=== PATIENT | female | born 1995 | race Caucasian/White ===

== ENCOUNTER → 2019-04-01 15:06 | Outpatient (CLI) | payer MEDICAID, SELFPAY ==
[2019-04-01 15:58] LABS: Hemoglobin A1c 4.6 % (4.2-6.3)
[2019-04-01 16:56] LABS: Amphetamine Urine VISTA NEGATIVE (<1000 ng/mL); Barbiturate Urine VISTA NEGATIVE (< 200 ng/mL); Benzodiazepine Urine VISTA NEGATIVE (< 200 ng/mL); Cocaine Urine VISTA NEGATIVE (< 300 ng/mL); Ecstacy Urine VISTA NEGATIVE (< 500 ng/mL); Methadone Urine VISTA NEGATIVE (< 300 ng/mL); PCP Urine VISTA NEGATIVE (< 25 ng/mL); THC Urine VISTA NEGATIVE (< 50 ng/mL); Vista UDS pH Range 6
== END ==
PROVIDERS: Visit Provider Obstetrics & Gynecology
DX: Z34.83 Encounter for supervision of other normal pregnancy, third trimester (principal); Z36.85 Encounter for antenatal screening for Streptococcus B
CPT/HCPCS: 36415; 80307; 83036; 87081

== ENCOUNTER 2019-05-03 07:00 | Inpatient (IN) | payer MEDICAID, SELFPAY ==
[2019-05-03 07:29] VITALS: BMI 31.0
[2019-05-03] MEDS: Lactated Ringers 1,000 ML 50 ML IV ×3 (07:50→18:50)
[2019-05-03] MEDS: Oxytocin 30 units/NS 500 ml 30 UNITS/500 ML IV.SOLN IV (08:22)
[2019-05-03 08:27] LABS: Absolute Lymphocyte Count 2.09 X10^3/ul (0.83-4.51); Absolute Neutrophil Count 8.2 X10^3/uL (2.0-7.7); Basophil# 0.03 X10^3/uL; Basophil% 0.3 % (0-1); Eosinophils% 0.9 % (0-5); Hematocrit 35.9 % (37-47); Lymphocyte # 2.09 X10^3/ul (4.0); Lymphocyte % 18.5 % (19-41); Mean Corp Hgb Conc 33.4 g/gl (32-36); Mean Corpuscular Hgb 30.2 pg (27.0-32.0); Mean Corpuscular Volume 90.4 fL (81-99); Mean Platelet Vol. 10.6 fl (6.2-12.0); Monocyte# 0.85 X10^3/uL; Monocyte% 7.5 % (0-10); Neutrophil % 72.4 % (47-70); Platelet Count 253 K/mm3 (150-450); RBC Distribution Width CV 13.2 % (11.6-14.6); RBC Distribution Width SD 42.8 fl (35.1-43.9); Red Blood Count 3.97 M/mm3 (4.2-5.4); White Blood Count 11.3 K/mm3 (4.4-11.0)
[2019-05-03 08:37] LABS: POSITIVE COUNT NO; POSITIVE DIFFERENTIAL NO; POSITIVE MORPHOLOGY NO
[2019-05-03] MEDS: fentaNYL-bupivacaine (epidural) 100 ML BAG EPIDURAL ×3 (09:29→20:06)
[2019-05-03 10:16] LABS: Amphetamine Urine VISTA NEGATIVE (<1000 ng/mL); Barbiturate Urine VISTA NEGATIVE (< 200 ng/mL); Benzodiazepine Urine VISTA NEGATIVE (< 200 ng/mL); Cocaine Urine VISTA NEGATIVE (< 300 ng/mL); Ecstacy Urine VISTA NEGATIVE (< 500 ng/mL); Methadone Urine VISTA NEGATIVE (< 300 ng/mL); PCP Urine VISTA NEGATIVE (< 25 ng/mL); THC Urine VISTA NEGATIVE (< 50 ng/mL); Vista UDS pH Range 7
--- NOTE | 2019-05-03 11:17 | HP.PCM_ITS ---
History and Physical Date of Admission: 05/03/19 OB HISTORY AND PHYSICAL EXAMINATION [facility] History of this : 23 yo female Ab0 with EDC 04/23/2019 by 12wk Ultrasound, presents to Labor and Delivery. for induction of labor postdates at 41 3/7 wk EGA. H/o rapid progression after AROM and plans epidural first prior to AROM. care remarkable for - , O positive. RI HepB, HepC NEG, HSV type I positive. TSH wnl., TOX screen positive, Marijuana, 1.) Approximately 1 hr of labor following SROM with first child, 2.) FOB has a 2-1/2 yr old son with possible Autism (lives in [place] with mother), Pt's 4 year old is with her father in [place], 3.) Marijuana use early in the , Tox screen negative at admission. 4.) ALLERGIC to PCN's!! 5.) VERY late transfer of care. 6.) Smoker 7.) H/O SEVERE depressive disorder with psychotic features. Also anxiety disorder Pertinent Past Medical History: Rubella - 15.5 09/07/18 Allergies: Penicillins Medications: None Review of Systems: Non-contributory PHYSICAL EXAMINATION General Appearance: 23 yo female in no acute distress Vital Signs: AF, VSS Heart: RRR without rubs or gallops Lungs: CTA x 2 Breasts: deferred Abdomen: gravid Pelvis: Cervix: 5 cm RN exam at admission. Presentation: cephalic Station: Fetus: Size: AGA Movement: present Heart: 120-130 avg variability Accels noted. UCs initially q 10-11 then to q 7 min with Pitocin start. Impression /Plan: Intrauterine . Here for induction of labor at 41 3/7 wk EGA. Favorable cervix and h/o rapid progression after AROM with delivery in 1 hr. Plans Epidural and then AROM after comfortable. Pitocin initiated. See Progress Notes for Changes: Physician's Signature: Date: ROUNDED and this exam performed at approx 0840 05/03/19 E Rakesh 05/03/19 1120
--- NOTE | 2019-05-03 12:15 | PN_ITS ---
Progress Note 41 3/7 wk Induction of labor. h/o rapid progress after SROM/AROM prior Comfortable w/ epidural AVSS Pitocin at 8mIU/min EFM 110-120s with accels early decels, variables. Category I tracing UCs q 2-4 mins CX: 6/-2 AROM: clear scant amt A/P: 41 /37 wk EGA induction of labor. Epidural in place. AROM Elliot ch progress, descent.
[2019-05-03] MEDS: 0.9% Saline Lock 10 ML Syringe IV ×3 (16:25→22:45)
[2019-05-03] MEDS: Amnioinfusion- 0.9% NS 1,000 ML IV.SOLN. INTRA-UTER (17:24)
--- NOTE | 2019-05-03 17:24 | PCM.PN.BLA ---
Progress Note Induction 41 3/7 wk with high Bishops score. Arrested at 8 cm for hours. but UCs inadequate. IUPC and scalp lead placed. EFM 120s with variables. Ucs noted ? adequacy A/P: 41 3/7 wk induction postdates. Inadequate UCs. variables. IUPC placed. Pitocin to continue prn adequate UCs. Positiion changes to facilitate descent , rotation.
[2019-05-03] MEDS: Oxytocin 30 units/NS 500 ml 30 UNITS/500 ML IV.SOLN 334 UNITS IV (21:02)
--- NOTE | 2019-05-03 21:17 | OP.PCM_ITS ---
Vaginal Delivery Maternal Presentation: Medically Indicated Induction Method of Induction: Pitocin, Amniotomy Medical Reason for Induction: Post term Amniotic Membrane Rupture Type: Artificial Amniotic Fluid Description: Clear Final HELDER: 04/23/19 Final HELDER Source: US <20 weeks Gestational age: 41 Weeks and 3 Days Date of Procedure: 05/03/19 Pre-Operative Diagnosis: IUP; Postdatism Post-Operative Diagnosis: IUP; Postdatism; Posterior Presentation Surgery/ Procedure Performed: Vacuum Assisted Vaginal Delivery Type of Anesthesia: Epidural Description of Procedure: Spontaneous vaginal delivery of a viable female infant with Apgars of 8/9 from an occiput posterior presentation with clear amniotic fluid and normal three- vessel placenta. No episiotomy. First-degree midline laceration repaired with a single stitch of 3-0 Rapide suture. Kiwi vacuum suction used from low outlet to expedite delivery of the head due to deep decelerations with each contraction. 4 pulls with 1 pop-off. Sponges okay. Delivery physician: Matt Huitron MD. Presentation: Vertex Placental Delivery Description: Spontaneous Placenta Disposition: [facility] Cord Vessel Description: 3 Vessels Cord Gases drawn per routine: ABG Cord Entanglement: None Estimated Blood Loss: 250 cc Infant A gender: Female (1 minute): 8 (5 minute): 9 Episiotomy Description: None Laceration: Midline, 1st degree Medications given after delivery: IV Pitocin Complications: None
--- NOTE | 2019-05-03 21:23 | DCINST_ITS ---
Discharge Diet: No Restrictions Discharge Activity: May Shower, May Take a Tub Bath May resume sexual activity in: 4-6 weeks Additional Activity Instructions:: Nothing in the vagina for 4-6 weeks. You may return to work/school in 6 weeks. Call your doctor if you observe: Fever of 101 or Higher, Inability to urinate, Inability to have a bowel movement, Using more than one pad per hour Additional Instructions: If you experience any of the following, contact your healthcare provider. * Bleeding that soaks a pad every hour for 2 hours * Unrelieved incision or abdominal pain * Swelling, redness, discharge or bleeding from your incision or episiotomy site * Your incision begins to separate * Problems urinating (including inability to urinate or burning while urinating). * Visual changes * Severe headache * Flu-like symptoms * Pain or redness in one of both of your breasts * Pain, warmth, tenderness or swelling in your legs, especially the calf area * Frequent nausea and vomiting * Symptoms of depression or anxiety If you experience any of the following, call 911 or go to the nearest Emergency Room. * Chest pain * Problems breathing * Seizure activity * Partial or complete paralysis of a body part, slurred speech, weakness or drooping of the face, or a sudden inability to walk or hold your balance Allergies/Adverse Reactions: Allergies Penicillins Allergy (Verified 05/03/19 07:57) Anaphylaxis Medications to take at Discharge [id number]/Iron/Folic/Dha [ Formula-Dha Softgel] 1 ea PO DAILY 05/03/19 Please Follow Up With: Matt Huitron MD - [phone] When: Call to make an appointment with your doctor in 6 weeks. Primary Care Physician: Suad Cameron MD [Primary Care Provider] - Test Results: Test results from this visit will be discussed in further detail at your follow- up appointment, if applicable.
--- NOTE | 2019-05-03 21:23 | PCM.DCVAG ---
Discharge Diet: No Restrictions Discharge Activity: May Shower, May Take a Tub Bath May resume sexual activity in: 4-6 weeks Additional Activity Instructions:: Nothing in the vagina for 4-6 weeks. You may return to work/school in 6 weeks. Call your doctor if you observe: Fever of 101 or Higher, Inability to urinate, Inability to have a bowel movement, Using more than one pad per hour Additional Instructions: If you experience any of the following, contact your healthcare provider. Bleeding that soaks a pad every hour for 2 hours Unrelieved incision or abdominal pain Swelling, redness, discharge or bleeding from your incision or episiotomy site Your incision begins to separate Problems urinating (including inability to urinate or burning while urinating). Visual changes Severe headache Flu-like symptoms Pain or redness in one of both of your breasts Pain, warmth, tenderness or swelling in your legs, especially the calf area Frequent nausea and vomiting Symptoms of depression or anxiety If you experience any of the following, call 911 or go to the nearest Emergency Room. Chest pain Problems breathing Seizure activity Partial or complete paralysis of a body part, slurred speech, weakness or drooping of the face, or a sudden inability to walk or hold your balance Allergies/Adverse Reactions: Allergies Penicillins Allergy (Verified 05/03/19 07:57) Anaphylaxis Medications to take at Discharge [id number]/Iron/Folic/Dha [ Formula-Dha Softgel] 1 ea PO DAILY 05/03/19 Please Follow Up With: Matt Huitron MD - [phone] When: Call to make an appointment with your doctor in 6 weeks. Primary Care Physician: Suad Cameron MD [Primary Care Provider] - Test Results: Test results from this visit will be discussed in further detail at your follow-up appointment, if applicable.
[2019-05-03] MEDS: Oxytocin 30 units/NS 500 ml 30 UNITS/500 ML IV.SOLN 167 UNITS IV (21:32)
[2019-05-04 03:10] VITALS: BP 103/48; PULSE 88; RESP 16; TEMP 36.9
[2019-05-04] MEDS: Ibuprofen 600 MG Tablet PO ×3 (04:51→20:10)
[2019-05-04 08:22] VITALS: BP 117/61; PULSE 64; RESP 18; TEMP 36.8
--- NOTE | 2019-05-04 08:30 | PN.OBGYN_ITS ---
Subjective: Patient without complaints. Attempting to breast-feed. - Physical Exam Vital Signs Temp Pulse Resp BP 98.2 F 64 18 117/61 05/04/19 08:22 05/04/19 08:22 05/04/19 08:22 05/04/19 08:22 Oxygen Delivery Method Room Air Weight: 210 lb Body Mass Index (BMI) 31.0 Intake and Output for Last 24 Hours 05/02/19 05/03/19 05/04/19 23:59 23:59 23:59 Output Total 700 / 700 1600 / 1600 Balance -700 / -700 -1600 / -1600 Laboratory Tests Past 24 Hrs 05/03/19 05/03/19 05/03/19 07:50 07:50 09:00 WBC 11.3 H RBC 3.97 L Hgb 12.0 Hct 35.9 L MCV 90.4 MCH 30.2 MCHC 33.4 RDW 13.2 RDW Differential 42.8 Plt Count 253 MPV 10.6 Immature Gran % (Auto) 0.400 Neut % (Auto) 72.4 H Lymph % (Auto) 18.5 L [place]osa % (Auto) 7.5 Eos % (Auto) 0.9 Baso % (Auto) 0.3 Absolute Neuts (auto) 8.2 H Absolute Lymphs (auto) 2.09 Total Counted Not Reportable Urine Opiates Screen NEGATIVE Urine Methadone Screen NEGATIVE Ur Barbiturates Screen NEGATIVE Ur Phencyclidine Scrn NEGATIVE Ur Amphetamines Screen NEGATIVE U Methamphetamin-MDMA NEGATIVE U Benzodiazepines Scrn NEGATIVE Urine Cocaine Screen NEGATIVE U Cannabinoids Screen NEGATIVE Ur Drug Screen Comment Blood Type O POSITIVE Antibody Screen NEGATIVE Medical Necessity - Tobacco Use Smoking Status: Current every day smoker Assessment/Plan Doing well day #1 status post routine spontaneous vaginal delivery. Continuing present care.
[2019-05-04] MEDS: Acetaminophen 500 MG Tablet 1000 MG PO ×2 (08:32→16:37)
[2019-05-04 12:05] VITALS: BP 117/50; PULSE 81; RESP 16; TEMP 37.2
[2019-05-04 16:00] VITALS: BP 126/55; PULSE 82; RESP 18; TEMP 36.9
[2019-05-04 20:10] VITALS: BP 118/66; PULSE 84; RESP 18; TEMP 37.2
[2019-05-05 01:20] VITALS: BP 111/57; PULSE 80; RESP 16; TEMP 37.1
[2019-05-05] MEDS: Ibuprofen 600 MG Tablet PO (03:25)
[2019-05-05 07:55] VITALS: BP 124/55; PULSE 86; RESP 16; TEMP 36.6
--- NOTE | 2019-05-05 09:42 | PCM.PN.OB ---
Subjective: Patient without complaints. Breast-feeding going well. Ready to go home. - Physical Exam Vital Signs Temp Pulse Resp BP 97.8 F 86 16 124/55 H 05/05/19 07:55 05/05/19 07:55 05/05/19 07:55 05/05/19 07:55 Oxygen Delivery Method Room Air Weight: 210 lb Body Mass Index (BMI) 31.0 Intake and Output for Last 24 Hours 05/03/19 05/04/19 05/05/19 23:59 23:59 23:59 Output Total 700 / 700 1600 / 1600 Balance -700 / -700 -1600 / -1600 Medical Necessity - Tobacco Use Smoking Status: Current every day smoker Assessment/Plan Doing well day #2 status post routine spontaneous vaginal delivery. Will release to home with routine instructions.
--- NOTE | 2019-05-05 10:30 | CASEMGMT ---
Social Work Assessment Labor and Delivery Unit Date of Referral: 05/04/2019 Time of Referral: 0830 Referred By: nursing staff Date of Intervention: 05/05/2019 Time of Intervention: 1030 Reason for Referral: maternal use of marijuana in ; history of depression and anxiety. History obtained from: medical records and mother of baby (MOB) Karla Villa; father of baby (FOB) Song Diaz joined conversation with MOB?s permission midway through conversation. Household composition: MOB and FOB live in trailer that his owned by FOB?s parents. MOB reports home situation is safe and adequate. Patient's parent/guardian status: MOB is 25 year old single female, involved with 24 year old Song Diaz. MOB denies any form of abuse in this relationship,denies safety concerns and reports have been together for 2 years now. Baby girl born this admission on 05.03.2019, Verna Diaz, is the first child for MOB and FOB together. FOB has a 2.5 year old daughter living with the mother in [place]. MOB has a 4 year old daughter, born June 2014, Lizeth Mak who lives with Lizeth?s father in [place]. MOB reports she and Lizeth?s father shared parenting, a year at a time until Lizeth was school age and reports there was never any court involvement in regards to custody. MOB reports the plan is for Lizeth to live with the father in [place] until ?she is ready to come and live with me,? as Lizeth is to start school this coming year. Medical History: MOB is G2, P1 to 2 after delivering Verna. MOB reports was planned as took out the Mirena and used no control after. MOB reports that received some care while Iiving in [place] [facility] and that upon move to [place] it took a bit of time to get to see a doctor, needed to establish insurance. MOB with transfer of care to [place] based practice at 36 weeks on 04.01.2019. MOB planning on Implanon, or something similar for control. Baby Verna was born at 41.3 weeks. Weighed 8 pounds 7 ounces. Apgars 8 and 9 at 1 and 5 minutes of life. Educational Status: MOB graduated high school, has some college courses done. Reports can read, write, and understand what is read. Financial Status: MOB is not currently employed. FOB reportedly doing factor work right now, but MOB vague as to how frequently FOB is working. MOB reports FOEvaristo?s goals is to get a fulltime job now that baby is born. MOB reports that she herself cannot wait to return to work (has worked at various jobs including bartending, take out waitress, and cleaning to name few) Supplies: MOB reports to have needed supplies including diapers, wipes, clothing, 3;1 pack-n-play with bassinet attachment. MOB reports has crocheted the baby blankets. Childcare/Caregiver(s): MOB will be primary caregiver with help from FOB. Transportation: MOB and FOB share one car between the two. Programs/Agencies Involved: MOB reports to be on Medicaid through [facility] and in the process of applying for food card. MOB reports to be open to WIC. Declines referral to [facility] but accepting of information. Children Services/Legal Issues: Denies any legal issues. Denies past or present involvement with children services, including in [place] and [place]. Behavioral Health Issues: Mental Health History: MOB endorses history of depression and anxiety. Chart indicates MOB?s depression history was severe with psychotic features present. Upon exploration of this, MOB reports that had nightmares during past depressive episodes but denies any hallucinations. MOB reports the medication that was prescribed was supposed to help psychosis as well. MOB reports has been off of medication since early and reports has felt good off of medication. MOB denies any history of counseling and FOB reports he was MOB?s counselor, to which MOB agreed that FOB was very helpful to MOB during past depressive episodes, and that MOB tells FOB everything. MOB denies any history of suicidal ideation, plan, intent or attempts, but does admit when was feeling so low in depression that had thoughts about dying. MOB denies any thoughts of dying during this or since delivery. MOB reports to have things to live for. Substance Use History: MOB denies illicit substance use such as heroin, cocaine, or meth. MOB reports used marijuana when living in [place] where marijuana is legal. MOB reports that did use to smoke marijuana regularly but quit use early in after finding out about . MOB reports belief that use ceased in the first trimester. MOB reports history of social alcohol use, denies use in . MOB smoke tobacco about 6-7 cigarettes a day, down from about half to whole pack a day. Family History: No official diagnosis discussed or disclosed but MOB commented that her family is ?crazy? when long term care social worker inquired about any history of Bipolar or schizophrenia, then actually denied that anyone has those diagnoses. Drug Screens: maternal drug screen negative on at first PNC appointment in [place]. Negative at delivery on 05.03.2019. Baby?s urine is negative and meconium is pending. Family/Social Stressors and/or risk factors: MOB moved from [place] to [place] about 3-4 months ago. care late in [place] and unknown course of treatment in [place] as no records noted in the chart. Finances seem to be limited due to MOB not working and FOB not working fulltime, though MOB reports situation is helped by free rent and living quarters as FOB?s family owns the place where MOB and FOB reside. Maternal history of depression with psychotic features and anxiety, not currently in any treatment. Maternal history of marijuana use. Transportation accessible but family is sharing one vehicle. MOB?s daughter lives out of state and not clear last time MOB saw the older daughter though MOB reports to talk to the older daughter regularly through Facebook. Support Systems: MOB repots FOB is primary support. Additional support from FOB?s father and stepmother who live across the street. MOB plans to have FOB?s stepmother help with childcare when MOB returns to work, or will work opposite shifts from FOB to avoid need for childcare. Depression/Shaken Baby/Safe Sleeping: Educated MOB and FOB to safe sleeping as well as to shaken baby prevention. Educated MOB and FOB to depression and anxiety, risk factors present, and importance of MOB seeking out help and support for emotional wellness. MOB not clear as to whether had any past depression or anxiety, as when long term care social worker inquired about this MOB made comment that never wanted to hurt her baby. Educated MOB that PPD and anxiety is much more than wanting to harm the baby, then verbally reviewed potential symptoms. Also educated to risk for psychosis. ASSESSMENT: Met with MOB alone and then later joined by FOB. During private conversation reported there is no topic that is off limits while FOB is present. MOB did deny privately any history of abuse in this relationship. MOB held good eye contact, was pleasant, smiling at appropriate times, stayed on task to subject at hand though at times needed rewording and education, such as when long term care social worker exploring depression history. MOB reporting to have needed baby supplies, and to feel to have adequate support, that FOB will be around to help out upon home going. Addresses substance use with MOB who reports no intent to smoke marijuana again, and not while breast feeding. Educated MOB to [place] law and reporting substance exposed infants in utero. Addressed that the meconium can potentially detect use back to the 2nd trimester. MOB made comment that did quit in the first trimester but that used to smoke a lot and wondered if there could be an detection due to how much MOB used to use. MOB asked about what will happen if children services decides to come to visit. Answered questions as able and let MOB know that if children services comes to see MOB then there may be potential for additional drug testing and possibility of MOB having to get mental health and/or drug and alcohol assessments. At this time MOB reports mood to be good, denies need or interest in counseling. MOB would be more open to medication but reports to feel fine off of medication at this time. Educated to higher risk for psychosis, of importance to let others know if symptoms start a this is serious s needs to be treated for safe care of self and ultimately of baby. MOB voiced understanding and awareness. Explored with MOB what type of coping skills MOB uses. FOB interjected and stated ?sex,? and then laughed. This documentation writer discussed that if this is a coping skill, this is not something that MOB is to be doing until cleared by the doctor. When long term care social worker readdressed the topic of coping, MOB endorses talking to FOB, to zainab and cornell as ways to manage stress. Also of note, during conversation surrounding marijuana, FOB inquiring about this documentation writer?s personal history and beliefs regarding marijuana. This documentation writer redirected conversation several times and set clear boundaries with FOB regarding stated curiosity. Safe Plan of Care for related to substance use: Addressed this with MOB who had a hard time with determining safe plan of care other than would make sure the baby is cared for. Reviewed potential ways that one can help ensure safety, such as making sure a sober person is around to care for the baby, should MOB decide to use marijuana again. MOB reports that does not plan to use again, but that it makes sense what long term care social worker said about leaving baby in care of person who is not using. FOB then interjected that he does not smoke marijuana. PLAN: MOB and baby to home. [facility] resources lists provided, WIC applications, and depression packet given. Referral to [facility] to be made. Will monitor for meconium drug screen results. No other services requested or indicated at this time. -HUBER Hung, CONTINUOUS DRIER OPERATOR
--- NOTE | 2019-05-05 15:18 | CASEMGMT ---
Social Work Labor and Delivery Called [facility] ([facility]) and spoke with Francesca Nicholas in the intake department ([phone]). Referral given for substance exposed . Brief maternal and infant histories reported including untreated maternal mental health, questionable financial stability, late start of care in [place], observations with MOB regarding mother/child interactions, and interactions with FOB this date. MOB and baby have discharged today. Will monitor for meconium drug screen results and report to [facility] if indicated. -LINDA Hung, MS
== END 2019-05-05 10:50 | disposition home or self-care (01) | DRG 560 ==
PROVIDERS: Admitting Provider Obstetrics & Gynecology; Family Provider Obstetrics & Gynecology; PCP Obstetrics & Gynecology; Referring Provider Obstetrics & Gynecology; Visit Provider Obstetrics & Gynecology
DX: O48.0 Post-term pregnancy (principal); Z3A.41 41 weeks gestation of pregnancy; O76 Abnormality in fetal heart rate and rhythm complicating labor and delivery; O70.0 First degree perineal laceration during delivery; O99.334 Smoking (tobacco) complicating childbirth; Z37.0 Single live birth
CPT/HCPCS: 59025; 59050; 80307; 85025; 86850; 86900; 99218; J7030; J7120; A4216; G0378

== ENCOUNTER → 2020-10-24 15:20 | Outpatient (CLI) | payer MEDICAID, SELFPAY ==
[2020-10-24 15:49] LABS: Absolute Lymphocyte Count 2.01 X10^3/uL (0.83-4.51); Absolute Neutrophil Count 6.2 X10^3/uL (2.0-7.7); Basophil# 0.02 X10^3/uL; Basophil% 0.2 % (0-1); Eosinophil# 0.09 X10^3/uL; Hematocrit 36.9 % (37-47); Hemoglobin 12.5 g/dL (12.0-15.0); Lymphocyte # 2.01 X10^3/ul (4.0); Lymphocyte % 22.9 % (19-41); Mean Corp Hgb Conc 33.9 g/dL (32-36); Mean Corpuscular Volume 88.7 fL (81-99); Mean Platelet Vol. 9.9 fl (6.2-12.0); Monocyte# 0.46 X10^3/uL; Monocyte% 5.2 % (0-10); NRBC Flagged by Analyzer 0 % (0-5); Neutrophil # 6.18 X10^3/uL (2.7-7.7); Neutrophil % 70.4 % (47-70); Platelet Count 343 K/mm3 (150-450); RBC Distribution Width CV 12.7 % (11.6-14.6); RBC Distribution Width SD 41.2 fl (35.1-43.9); Red Blood Count 4.16 M/mm3 (4.2-5.4); White Blood Count 8.8 K/mm3 (4.4-11.0)
[2020-10-25 11:07] LABS: HIV - WCH Non-Reactive (Nonreactive); Hepatitis B Surface Antigen Non-Reactive (Nonreactive); Hepatitis C Antibody Non-Reactive (Nonreactive); Rubella IgG Reactive (Nonreactive)
[2020-10-26 01:36] LABS: Prenatal RPR NONREACTIVE (NONREACTIVE)
[2020-10-27 08:16] LABS: Chlamydia By Nucleic Acid AMP Negative (Negative)
[2020-10-27 08:35] LABS: Gonococcus By Nucleic Acid AMP Negative (Negative)
[2020-10-27 14:40] LABS: HPV APTIMA, High Risk Positive (Negative)
[2020-10-27 14:41] LABS: HPV Reflexed? YES, CHARGE PATIENT
== END ==
PROVIDERS: PCP Obstetrics & Gynecology; Visit Provider Obstetrics & Gynecology
DX: Z32.01 Encounter for pregnancy test, result positive (principal)
CPT/HCPCS: 36415; 85025; 86703; 86762; 86803; 87077; 87086; 87088; 87186; 87340; 87491; 87591; 87624; 88175; G0145

== ENCOUNTER → 2021-01-25 16:26 | Outpatient (CLI) | payer MEDICAID, SELFPAY ==
[2021-01-25 17:21] LABS: Hematocrit 33.1 % (37-47); Hemoglobin 10.8 g/dL (12.0-15.0); Mean Corp Hgb Conc 32.6 g/dL (32-36); Mean Corpuscular Volume 91.9 fL (81-99); Mean Platelet Vol. 9.7 fl (6.2-12.0); Platelet Count 268 K/mm3 (150-450); RBC Distribution Width CV 12.9 % (11.6-14.6); RBC Distribution Width SD 42.8 fl (35.1-43.9); White Blood Count 9.1 K/mm3 (4.4-11.0)
[2021-01-25 17:45] LABS: Glucose Challenge Gest 1H 50g 103 mg/dL (70-140)
== END ==
PROVIDERS: PCP Obstetrics & Gynecology; Visit Provider Obstetrics & Gynecology
DX: Z34.82 Encounter for supervision of other normal pregnancy, second trimester (principal)
CPT/HCPCS: 36415; 82950; 85027

== ENCOUNTER 2021-04-18 05:45 | Inpatient (IN) | payer MEDICAID, SELFPAY ==
[2021-04-18] VITALS (71 sets, daily range): BP systolic 117–149; BP diastolic 56–98; PULSE 71–166; RESP 16–18; TEMP 36.2–37.3; O2SAT 88–100; BMI 33.1
[2021-04-18] MEDS: Lactated Ringers 500 ML 999 ML IV (05:53)
[2021-04-18 06:10] LABS: Absolute Lymphocyte Count 3.41 X10^3/uL (0.83-4.51); Absolute Neutrophil Count 6.7 X10^3/uL (2.0-7.7); Basophil# 0.03 X10^3/uL; Basophil% 0.3 % (0-1); Eosinophil# 0.11 X10^3/uL; Hematocrit 34.7 % (37-47); Hemoglobin 11.4 g/dL (12.0-15.0); Lymphocyte # 3.41 X10^3/ul (0.83-4.51); Lymphocyte % 30.6 % (19-41); Mean Corp Hgb Conc 32.9 g/dL (32-36); Mean Corpuscular Hgb 28.9 pg (27.0-32.0); Mean Corpuscular Volume 88.1 fL (81-99); Monocyte# 0.76 X10^3/uL; Monocyte% 6.8 % (0-10); NRBC Flagged by Analyzer 0 % (0-5); Neutrophil # 6.74 X10^3/uL (2.7-7.7); Neutrophil % 60.6 % (47-70); Platelet Count 289 K/mm3 (150-450); RBC Distribution Width CV 14.6 % (11.6-14.6); RBC Distribution Width SD 47.1 fl (35.1-43.9); Red Blood Count 3.94 M/mm3 (4.2-5.4); White Blood Count 11.1 K/mm3 (4.4-11.0)
[2021-04-18] MEDS: Lactated Ringers 1,000 ML 200 ML IV (06:24)
--- NOTE | 2021-04-18 06:34 | PCM.HP.BLA ---
History and Physical Date of Admission: 04/18/21 Chief complaint: Contractions History of present illness: 25-year-old G3, P2 at 39 weeks and 4 days with HELDER: 04/21/2021 by LMP arrives with contractions. Denies headache, visual changes, chest pain, shortness of breath, nausea vomiting, right upper quadrant pain. Patient states good movement. Obstetric history: G1: 40-week 07/05/2014 female G2: 42-week 05/03/2019 female G3: Current Past medical history: Depression Medications: vitamin Past surgical history: Right breast Allergies: Penicillin Social history: 1 pack/day smoker. Denies alcohol or drug use Family history: Denies history DVT or PE Review of systems: Besides above pertinent positives a full review of systems was negative Physical exam: Vitals: Blood pressure 135/88 pulse 85 temp 97.3 General: Normal-appearing no acute distress HEENT: Normocephalic atraumatic no cervical lymphadenopathy Cardiac/respiratory: No use of accessory muscles nonlabored breathing Abdomen: Soft, nontender, gravid Extremities: No peripheral edema normal peripheral pulses Neuro: Grossly intact Psych: Normal affect normal demeanor nonpressured speech Labs: White blood cell count 11.1 hemoglobin 11.4 hematocrit 34.7 platelets 289. Blood type O+. GBS bacteriuria clindamycin resistant Assessment plan: 25-year-old G3, P2 at 39 weeks and 4 days arrives in labor Admit labor and delivery CEFM GBS bacteriuria clindamycin resistant will start vancomycin Routine orders Anesthesia to see
[2021-04-18] MEDS: fentaNYL-bupivacaine (epidural) 100 ML BAG EPIDURAL (06:42)
[2021-04-18] MEDS: Oxytocin 30 units/NS 500 ml 30 UNITS/500 ML IV.SOLN 334 UNITS IV (09:04)
--- NOTE | 2021-04-18 09:12 | EX.PCM.OBRPT ---
Vaginal Delivery Findings Description of Procedure: Normal spontaneous vaginal delivery of a viable male , vertex TAMY. Head and shoulders delivered with ease. Cord cut and clamped. Baby handed off to patient. Placenta delivered via cord traction and fundal massage. First-degree midline perineal laceration noted and repaired in typical fashion. EBL 200 cc Apgars 9/9
[2021-04-18] MEDS: 0.9% Saline Lock 10 ML Syringe IV (12:35)
[2021-04-18] MEDS: Acetaminophen 500 MG Tablet 1000 MG PO ×2 (13:51→20:51)
[2021-04-18] MEDS: Ibuprofen 600 MG Tablet PO ×2 (17:04→23:43)
[2021-04-19] VITALS (8 sets, daily range): BP systolic 119–127; BP diastolic 57–75; PULSE 72–83; RESP 16–18; TEMP 36.1–37.2; O2SAT 95–97
[2021-04-19] MEDS: Acetaminophen 500 MG Tablet 1000 MG PO ×2 (03:05→17:07)
[2021-04-19] MEDS: Ibuprofen 600 MG Tablet PO ×3 (05:59→19:27)
--- NOTE | 2021-04-19 07:01 | PCM.PN.OB ---
Subjective Subjective No issues overnight. Reports painful cramping intermittently, improved with heating pad. Denies heavy lochia. No nausea, vomiting. Tolerates PO and voids without difficulty. She is . Objective Data Objective Data Vital Signs: Vital Signs Temp Pulse Resp BP Pulse Ox 99.0 F 82 16 121/57 H 97 04/19/21 03:02 04/19/21 03:01 04/19/21 03:01 04/19/21 03:01 04/19/21 03:01 Oxygen Delivery Method Room Air Weight: 104.78 kg Body Mass Index (BMI) 33.1 Intake & Output: Intake and Output for Last 24 Hours 04/17/21 04/18/21 04/19/21 23:59 23:59 23:59 Intake Total 2960 / 2960 Output Total 1400 / 1400 Balance 1560 / 1560 Lab / Micro Data Result Diagrams: 04/18/21 05:53 Labs: Laboratory Results - last 24 hr 04/18/21 05:53 Blood Type O POSITIVE Antibody Screen NEGATIVE Micro: Microbiology 04/18/21 06:20 Mucosa - Nose SARS-CoV-2 Antigen (Rapid) - Final Physical Exam Const alert, oriented x3 and no apparent distress Resp normal respiratory effort and normal air movement Cardio regular rate, regular rhythm, S1 normal heart sound and S2 normal heart sound Narrative: lochia scant Uterus Palpation: uterus fundus firm and other OB fundus nontender Extremity no calf tenderness Neuro oriented x3 Assessment & Plan (1) (spontaneous vaginal delivery): PLAN: -Rh positive - -Routine care -d/c home today
--- NOTE | 2021-04-19 07:11 | PCM.DC ---
Discharge Instructions Diet Discharge Diet: No restrictions Activity May resume sexual activity in: 4-6 weeks Dressing / Incision Call your doctor if you observe: Fever of 101 or Higher, Using more than 1 pad per hour, Shortness of breath, Chest pain, Calf discomfort, Uncontrolled pain and - (Persistent or severe headache) Follow Up Care Please Follow Up With: Keon Hutton When: 3 weeks for mood check and Nexplanon 6 weeks for visit Test Results: Test results from this visit will be discussed in further detail at your follow-up appointment, if applicable. Discharge Plan Admission Admit Date/Time: 04/18/21 05:45 Primary Reason for Your Visit: Vaginal delivery Attending Provider: Keon Hutton Primary Care Provider: Care Physician,Cynthia Primary Instructions Patient Instructions: After a Vaginal Additional Instructions / Restrictions: You may take Tylenol Extra Strength over the counter for pain. Two tablets every 6 hours as needed. Discharge Orders/Prescriptions Prescriptions: New ibuprofen 600 mg tablet 600 mg PO Q8H PRN (Reason: pain) Qty: 30 RF: 0 Continued [id number] 1 EACH capsule 1 ea PO DAILY RF: 0 Referrals / Follow Up: Care Physician,No Primary [Primary Care Provider] - Disposition Disposition (needs filled in before D/C Order can be placed): Home, Self Care
[2021-04-20 01:14] VITALS: BP 125/59; PULSE 83; RESP 18; TEMP 36.4; O2SAT 97
[2021-04-20] MEDS: Acetaminophen 500 MG Tablet 1000 MG PO ×2 (01:16→09:50)
[2021-04-20] MEDS: Ibuprofen 600 MG Tablet PO (04:54)
[2021-04-20 09:35] VITALS: BP 122/60; PULSE 91; RESP 16; TEMP 36.7
[2021-04-20 09:36] VITALS: BP 122/60; PULSE 91; TEMP 36.7
== END 2021-04-20 12:20 | disposition home or self-care (01) | DRG 560 ==
PROVIDERS: Admitting Provider Obstetrics & Gynecology; Referring Provider Obstetrics & Gynecology; Visit Provider Obstetrics & Gynecology
DX: O99.824 Streptococcus B carrier state complicating childbirth (principal); O70.0 First degree perineal laceration during delivery; O99.334 Smoking (tobacco) complicating childbirth; F17.200 Nicotine dependence, unspecified, uncomplicated; Z20.822 Contact with and (suspected) exposure to COVID-19; Z3A.39 39 weeks gestation of pregnancy; Z37.0 Single live birth
CPT/HCPCS: 59050; 85025; 86850; 86900; 86901; 87426; 99218; J7040; J7120; A4216; G0378

== ENCOUNTER 2021-08-01 14:57 | Emergency (ER) | payer MEDICAID, SELFPAY ==
[2021-08-01 14:58] VITALS: BP 130/86; PULSE 70; RESP 17; TEMP 36; O2SAT 98; BMI 28.5
--- NOTE | 2021-08-01 15:14 | US_ITS ---
ACR Level 3 findings have been noted. An addendum which confirms receipt of the report will follow. STUDY: ABDOMINAL ULTRASOUND - RIGHT UPPER QUADRANT REASON FOR VISIT: Female, 26 years old PAIN TECHNIQUE: Ultrasound evaluation of the right upper quadrant was performed with real-time and static hurt-scale imaging. TECHNICAL QUALITY: Adequate. COMPARISON: None. FINDINGS: Liver: The liver measures 17.4 cm. There is normal echogenicity of the liver. The bile ducts are within normal limits. There is hepatic color flow. The direction of portal flow is hepatopetal. There is 5.3 x 4.6 cm isoechoic mass at the left lobe. Gallbladder: Normal distended gallbladder. The gallbladder wall measures 2 mm. There is a negative sonographic Cain''s sign. There is no pericholecystic fluid. There are no gallstones. Common Bile Duct (C.B.D.): The common bile duct measures 4 mm. Pancreas: Normal size of the head, body and tail of the pancreas. There is normal echogenicity of the pancreas. There is no demonstrated pancreatic mass or cyst. Right Kidney: Normal size of the right kidney. The right kidney measures 10.4 cm. Normal renal cortex. The right cortex measures 1.4 cm. There is no demonstrated renal mass or cyst. There is no right hydronephrosis. US/Gallbladder IMPRESSION: No gallstones or biliary dilatation. Mass of the left lobe of liver. CT and/or MRI recommended for further characterization. Electronically Signed: Santo Sams MD at 16:56 EDT , Service support ,
--- NOTE | 2021-08-01 15:15 | ED.VIS.GI ---
HPI HPI - GI History of Present Illness Chief Complaint: Abd Pain Detail of Chief Complaint: Abdominal pain that started four days ago Informant: patient Abdominal Pain/Flank Pain Current Severity: 0/10 Worsened by: Food Nausea/Vomiting/Emesis GI Symptom: Negative for Nausea and Vomiting Diarrhea/Melena/Hematochezia GI Symptom: Negative for Diarrhea, Melena and Hematochezia Narrative Narrative: Patient presents to the emergency department with complaint of abdominal pain insert four days ago. Patient states that the pain is intermittent and typically made worse by eating. She will also have intermittent pain without eating. She states the pain seems to originate in the epigastric region, radiating to both upper quadrants. Patient also feels pain across her mid back. Patient states that she went on [employer] and feels like this might be her gallbladder acting up. Patient did deliver a baby in April. Patient has had no nausea or vomiting with this. She denied any fevers. She denies black or tarry stool or by red blood per rectum. Patient denies dysuria but she has had some mild frequency. Patient has remote history of kidney stones but the pain feels different. Prior similar symptoms: No PFSH PFSH Medical History (Updated 08/01/21 @ 18:[address] Yoseph Vora, DO) Kidney stone (spontaneous vaginal delivery) Home Medications lansoprazole [Prevacid] 30 mg PO DAILY 28 Days #28 cap 08/01/21 [Rx Last Taken Unknown] Allergy/AdvReac Type Severity Reaction Status Date / Time Penicillins Allergy Anaphylaxis Verified 08/01/21 15:07 Surgical History (Updated 04/18/21 @ 08:10 by Ximena Holt) History of surgery Social History (Updated 04/18/21 @ 07:26 by Ximena Holt) adopted: No household members: significant other and children housing: house Smoking Status: Current some day smoker tobacco type: e-cigarettes ROS ROS ED Constitutional Constitutional ED: Reports systems reviewed and no addt'l complaints, except as documented; Denies body ache(s), change in weight or chills Eyes Eyes: Denies acute decrease in peripheral vision, change in vision, double vision or loss of vision ENT ENT ED: Reports none; Denies ear pain, lip swelling, loss taste/smell, neck pain, otalgia or sore throat Cardiovascular Cardiovascular: Reports none; Denies abdominal pain, chest pain with activity, leg edema, lightheadedness, palpitations, rapid heart rate or syncope Respiratory/Chest Respiratory/Chest: Reports none; Denies change in mental status, dry cough, dyspnea, hemoptysis, shortness of breath at rest or shortness of breath with exertion Gastrointestinal Gastrointestinal: Reports none and abdominal pain; Denies change in stool character, diarrhea, hematemesis, hematochezia, melena, rectal bleeding or vomiting Genitourinary Genitourinary ED: Reports none; Denies abdominal discomfort, anuria, dysuria, genital pain or polyuria Musculoskeletal Musculoskeletal: Reports none; Denies arthralgias, back pain, difficulty walking, extremity pain, muscle weakness or myalgias Integumentary Reports none; Denies abscess or rash Neurologic Neurologic: Reports none; Denies abnormal gait, confusion, focal weakness, frequent falls, headache(s), loss of vision, numbness, paresthesias, radicular pain, vertigo or weakness Psychiatric Psychiatric: Reports systems reviewed and no addt'l complaints, except as documented and none; Denies behavioral changes, confusion, difficulty concentrating, hallucinations, suicidal ideation, tactile hallucinations or visual hallucinations Endocrine Endocrinology: Denies none, cold intolerance, excessive sweating, fatigue or heat intolerance Hematologic/Lymphatic Hematologic/Lymphatic: Reports none; Denies anemia, easy bleeding or easy bruising Allergic/Immunologic Allergic/Immunologic ED: Denies as per HPI, none, lip swelling, mouth swelling, throat swelling, tongue swelling or hives EXAM Physical Exam Const Vital Signs: 08/01/21 14:58 08/01/21 17:25 Temperature 96.8 F L Temperature Source Temporal Pulse Rate 70 53 L Respiratory Rate 17 16 Blood Pressure 130/86 H Blood Pressure Mean 100 Pulse Ox 98 100 Oxygen Delivery Method Room Air Room Air Positive well nourished and well developed General Appearance ED: well developed and NAD HEENT Reports TM's clear and moist mucous membranes normocephalic and atraumatic; Negative for trauma or tenderness Tympanic Membrane ED: Yes TM's clear Eyes PERRL and EOMs intact bilaterally General Eye ED: Negative for pale conjunctiva or scleral icterus Neck no lymphadenopathy, supple and no JVD General: Negative for tenderness Chest Wall inspection of chest normal and palpation of chest normal Chest: Negative for tenderness Resp normal respiratory effort and clear to auscultation bilaterally Effort and Inspection: Negative for respiratory distress or pain with movement Auscultation: Negative for rhonchi, wheezes or diminished lung sounds Cardio regular rate, regular rhythm, S1 normal heart sound, S2 normal heart sound and no murmurs Peripheral Pulses: pulses 2+ throughout GI normal to inspection, nondistended, normoactive bowel sounds, soft to palpation, non-distended and no masses GI Narrative: Patient has some mild tenderness over the epigastric region as well as the right upper quadrant. Patient has some mild tenderness over the right lower quadrant. There is no rebound, rigidity, reporting signs. Negative Cain sign. Back/Spine no CVA tenderness and no thoracic nor lumbar tenderness Extremity normal to inspection General Extremety ED: Negative for edema General Extremity: Negative for edema Neuro oriented x3, CN's II-XII intact bilaterally, no sensory deficits noted and gait normal Sensorium / Orientation: awake, alert, oriented to person, oriented to place and oriented to time Motor Exam: strength 5/5 throughout and strength abnormal Psych mental status grossly normal Skin no rashes or lesions noted and no wounds MDM MDM MDM Narrative Medical decision making narrative: Lab work-up unremarkable. On ultrasound it was noted that she had a mass in the left lobe of the liver and radiology recommended CT and possibly MRI to evaluate further. CT scan obtained showed an enhancing lesion could represent an adenoma or hemangioma but cannot rule out more aggressive tumor and recommended possibly obtaining outpatient MRI. I will discuss case with general surgeon on-call to make referral. It is unclear if this is the etiology of her abdominal pain. She may require further evaluation with EGD to rule out gastritis versus peptic ulcer disease. Patient will be started on Prevacid. Lab Data Attestation: I reviewed the patient's lab results. Labs: Laboratory Results - last 24 hr 08/01/21 08/01/21 08/01/21 15:20 15:20 15:20 WBC 6.6 RBC 4.48 Hgb 13.2 Hct 38.8 MCV 86.6 MCH 29.5 MCHC 34.0 RDW Std Deviation 38.0 RDW Coeff of Josef 11.9 Plt Count 320 MPV 9.9 Immature Gran % (Auto) 0.200 Neut % (Auto) 47.8 Lymph % (Auto) 41.2 H [place] % (Auto) 6.4 Eos % (Auto) 3.6 Baso % (Auto) 0.8 Absolute Neuts (auto) 3.2 Absolute Lymphs (auto) 2.72 Nucleated RBC % 0 Sodium 139 Potassium 4.0 Chloride 108 H Carbon Dioxide 24.0 Anion Gap 7 BUN 13 Creatinine 0.72 Estim Creat Clear Calc 121.57 Est GFR (MDRD) Af Amer 125 Est GFR (MDRD) Non-Af 103 BUN/Creatinine Ratio 18.1 Glucose 86 Calcium 9.4 Total Bilirubin 0.30 AST 17 ALT 44 Alkaline Phosphatase 95 Total Protein 7.9 Albumin 4.4 Globulin 3.5 Albumin/Globulin Ratio 1.3 Lipase 430 H Serum , Qual NEGATIVE Urine Color Urine Clarity Urine pH Ur Specific [place] Urine Protein Urine Glucose (UA) Urine Ketones Urine Occult Blood Urine Nitrite Urine Bilirubin Urine Urobilinogen Ur Leukocyte Esterase Urine RBC Urine WBC Ur Squamous Epith Cells Urine Bacteria Urine Mucus 08/01/21 15:32 WBC RBC Hgb Hct MCV MCH MCHC RDW Std Deviation RDW Coeff of Josef Plt Count MPV Immature Gran % (Auto) Neut % (Auto) Lymph % (Auto) [place] % (Auto) Eos % (Auto) Baso % (Auto) Absolute Neuts (auto) Absolute Lymphs (auto) Nucleated RBC % Sodium Potassium Chloride Carbon Dioxide Anion Gap BUN Creatinine Estim Creat Clear Calc Est GFR (MDRD) Af Amer Est GFR (MDRD) Non-Af BUN/Creatinine Ratio Glucose Calcium Total Bilirubin AST ALT Alkaline Phosphatase Total Protein Albumin Globulin Albumin/Globulin Ratio Lipase Serum , Qual Urine Color Yellow Urine Clarity Clear Urine pH 7.0 Ur Specific [place] 1.015 Urine Protein Negative Urine Glucose (UA) Normal Urine Ketones Negative Urine Occult Blood 25 H Urine Nitrite Negative Urine Bilirubin Negative Urine Urobilinogen Normal Ur Leukocyte Esterase 25 H Urine RBC 0 SEEN Urine WBC 0-5 SEEN Ur Squamous Epith Cells 0 SEEN Urine Bacteria 0 SEEN Urine Mucus 0 SEEN Radiography Diagnostic Testing: Clinical Impression(s) from Imaging Studies Gallbladder Ultrasound 08/01/21 15:14 IMPRESSION: No gallstones or biliary dilatation. Mass of the left lobe of liver. CT and/or MRI recommended for further characterization. Electronically Signed: Santo Sams MD at 16:56 EDT , Service support , ADDENDUM: 08/01/21 1202 IMPRESSION: No gallstones or biliary dilatation. Mass of the left lobe of liver. CT and/or MRI recommended for further characterization. N.B. : KULWANT Arreguin, confirmed on 08/01/2021 17:01:27 (ET) that the healthcare facility has received the radiology report. Electronically Signed: Santo Sams MD at 16:56 EDT , Service support , Abdomen/Pelvis CT 08/01/21 16:55 IMPRESSION: Enhancing mass in the left lobe of the liver. Adenoma or atypical hemangioma are among leading considerations. More aggressive mass is not excluded. MRI recommended for further characterization. Right adnexal cyst. Electronically Signed: Santo Sams MD at 17:59 EDT , Service support , Discharge Plan Triage Chief Complaint: Abd Pain ED Provider: Yoseph Vora Dx/Rx/DC Orders Clinical Impression: Abdominal pain, Liver mass Instructions: ED Abdominal Pain Unkn Cause Fem Prescriptions: New lansoprazole [Prevacid] 30 mg capsule,delayed release(DR/EC) 30 mg PO DAILY 28 Days Qty: 28 RF: 0 Primary Care Provider: Care Physician,No Primary Referrals: Mari Solano MD [STAFF PHYSICIAN] - 3-5 Days Care Physician,No Primary [Primary Care Provider] - Activity Restrictions/Additional Instructions: Your CT scan showed a mass in the left lobe of your liver which will require further evaluation with MRI. Follow-up with general surgeon for further testing such as possibly endoscopy to rule out gastritis versus peptic ulcer disease as well. Disposition Disposition: Home, Self Care
[2021-08-01] MEDS: 0.9% Normal Saline 1,000 ML 125 ML IV (15:32)
[2021-08-01 15:40] LABS: Bacteria 0 SEEN /hpf (None Seen); Mucous, Urine 0 SEEN /hpf (<or=2+); Red Blood Cells-Urine 0 SEEN /hpf (0-5); Squamous Epithelial Cells - UA 0 SEEN /hpf (5-10)
[2021-08-01 15:43] LABS: Absolute Lymphocyte Count 2.72 X10^3/uL (0.83-4.51); Absolute Neutrophil Count 3.2 X10^3/uL (2.0-7.7); Basophil# 0.05 X10^3/uL; Basophil% 0.8 % (0-1); Eosinophil# 0.24 X10^3/uL; Eosinophils% 3.6 % (0-5); Hematocrit 38.8 % (37-47); Hemoglobin 13.2 g/dL (12.0-15.0); Lymphocyte # 2.72 X10^3/ul (0.83-4.51); Lymphocyte % 41.2 % (19-41); Mean Corpuscular Hgb 29.5 pg (27.0-32.0); Mean Corpuscular Volume 86.6 fL (81-99); Mean Platelet Vol. 9.9 fl (6.2-12.0); Monocyte# 0.42 X10^3/uL; Monocyte% 6.4 % (0-10); NRBC Flagged by Analyzer 0 % (0-5); Neutrophil # 3.16 X10^3/uL (2.7-7.7); Neutrophil % 47.8 % (47-70); Platelet Count 320 K/mm3 (150-450); RBC Distribution Width CV 11.9 % (11.6-14.6); Red Blood Count 4.48 M/mm3 (4.2-5.4); White Blood Count 6.6 K/mm3 (4.4-11.0)
[2021-08-01 15:47] LABS: Color, Urine Yellow (Yellow); Glucose, Dipstick Normal (Normal); Ketone-Dipstick Negative (Negative); Leukocyte Esterase-Dipstick 25 /ul (Negative); Nitrite-Dipstick Negative (Negative); Occult Blood-Urine 25 /ul (Negative); Protein-Dipstick Negative (Negative); Specific Gravity, Urine 1.015 (1.002-1.030); Urine Bilirubin Dipstick Negative (Negative); Urine Clarity Clear (Clear); Urine Urobilinogen Normal (Normal)
[2021-08-01 15:49] LABS: ALB/GLOB Ratio 1.3 RATIO (0.9-2.4); AST(SGOT) 17 U/L (15-37); Alanine Aminotransfer ALT/SGPT 44 U/L (13-56); Albumin, Serum 4.4 g/dL (3.2-5.0); Alkaline Phosphatase 95 U/L (45-117); Anion Gap 7 (5-15); BUN 13 mg/dL (7-18); BUN/Creat Ratio 18.1 RATIO (10-20); Calcium,Total 9.4 mg/dL (8.5-10.1); Chloride 108 mmol/L (98-107); Creatinine, Serum 0.72 mg/dL (0.55-1.02); EST Glomerular Filtration Rate 103 mL/min (>60); Est Glom Filt Rate - Afr Amer 125 mL/min (>60); Estimated Creatinine Clearance 121.57 ml/min; Globulin 3.5 g/dL (2.2-4.2); Glucose 86 mg/dL (74-106); Lipase 430 U/L (73-393); Protein, Total 7.9 g/dL (6.4-8.2); Sodium Level 139 mmol/L (136-145)
[2021-08-01 15:53] LABS: White Blood Cells 0-5 SEEN /hpf (0-5)
[2021-08-01 15:54] LABS: Internal QC Validated? YES +Cl - CLEAR BKGD; Pregnancy, Serum, hCG Quali. NEGATIVE Negative
--- NOTE | 2021-08-01 16:55 | CT_ITS ---
STUDY: CT ABDOMEN AND PELVIS WITH CONTRAST REASON FOR EXAM: Female, 26 years old. Abnormal ultrasound, liver mass RADIATION DOSAGE (If Supplied By Facility): CTDIvol = ( 12.28 ) mGy, DLP = ( 485.65 ) mGycm TECHNIQUE: Transaxial images were obtained from the dome of the diaphragm to the symphysis pubis without oral contrast. IV 100ML ISOVUE 370 was administered. Sagittal and coronal images were reconstructed. Individualized dose optimization techniques were used for this CT. COMPARISON: Ultrasound. FINDINGS: The visualized lung bases are unremarkable. The visualized portions of the heart are within normal limits. There is 5.3 x 4.6 cm enhancing mass extending exophytically from the left lobe of the liver. Normal gallbladder and extrahepatic biliary system. Normal spleen. Normal pancreas. Normal bilateral adrenal glands. Normal right kidney. Normal left kidney. Normal visualized stomach. Normal small intestine. Normal colon. The appendix is visualized and appears normal. Normal abdominal aorta. Normal inferior vena cava. Normal retroperitoneum. Normal urinary bladder. Normal visualized uterus. There is 2.5 cm right adnexal cyst. Normal abdominal wall. Normal osseous structures. CT/Abdomen/Pelvis W IV Cont ONLY IMPRESSION: Enhancing mass in the left lobe of the liver. Adenoma or atypical hemangioma are among leading considerations. More aggressive mass is not excluded. MRI recommended for further characterization. Right adnexal cyst. Electronically Signed: Santo Sams MD at 17:59 EDT , Service support ,
[2021-08-01 17:25] VITALS: PULSE 53; RESP 16; O2SAT 100
[2021-08-01 18:15] VITALS: BP 132/84; PULSE 86; RESP 16; TEMP 36.9; O2SAT 96
== END 2021-08-01 18:25 | disposition home or self-care (01) ==
PROVIDERS: Emergency Provider Emergency Medicine
DX: R10.13 Epigastric pain (principal); R16.0 Hepatomegaly, not elsewhere classified; F17.290 Nicotine dependence, other tobacco product, uncomplicated
CPT/HCPCS: 74177; 76705; 80053; 81001; 83690; 84703; 85025; 99283; J7030; Q9967

== ENCOUNTER → 2021-08-17 12:06 | Outpatient (CLI) | payer MEDICAID, SELFPAY ==
--- NOTE | 2021-08-17 13:00 | MRI_ITS ---
HISTORY: liver mass- -- possible adenoma vs hemangioma EXAMINATION: MR Abdomen WO/W Contrast TECHNIQUE: Multiplanar and multisequence MR images of the abdomen were obtained pre-and post IV contrast with dynamic postcontrast imaging.. IV Contrast dosage and agent: IV dotarem 18ml COMPARISON: CT abdomen pelvis and abdominal ultrasound August 01, 2021 FINDINGS: LOWER CHEST: Lung bases are clear. No cardiomegaly or pericardial effusion. LIVER: Redemonstration of left inferior hepatic 5.5 cm lobulated exophytic mass with central scar. Mass is slightly hyperintense on T1, isointense to liver on T1, with early arterial enhancement becoming isointense to liver on delayed phases, with relative hyperenhancement of the central scar and delayed phases, and diffusion restriction. No fat signal dropout on out of phase images. In addition there are two 7 mm diffuse enhancing nodules which are isointense to liver on T1, hyperintense on T2 with diffusion restriction. GALLBLADDER AND BILIARY TREE: No calcified gallstones. No gallbladder distension or wall edema. No intra- or extrahepatic biliary ductal dilation. PANCREAS: No focal cystic or solid mass. SPLEEN: Normal size without focal cystic or solid mass. ADRENAL GLANDS: No nodules. KIDNEYS AND URETERS: Normal renal size and position. No hydronephrosis. PERITONEUM: No ascites or free air. No other fluid collection. LYMPH NODES: No enlarged mesenteric or retroperitoneal lymph nodes. VESSELS: Aorta is non-dilated. MRI/MRI Abd WITH and W/O Contrast IMPRESSION: 5.5 cm left hepatic mass with mixed features compatible with adenoma or focal nodular hyperplasia. Additional MRI with hepatocyte specific contrast such as Eovist may help distinguish. Focal enhancing foci 7 mm nodules left hepatic segment 4A and segment 4b/5 are not specific and could represent flash fill hemangioma or additional adenoma or focal nodular hyperplasia. No suspicious adenopathy. at 0727 Reported and signed by: Mathew Younger MD Electronically Signed: Mathew Younger MD at 7:25 EDT Tel , Service support ,
== END ==
PROVIDERS: Referring Provider Surgery; Visit Provider Surgery
DX: R16.0 Hepatomegaly, not elsewhere classified (principal)
CPT/HCPCS: 74183; A9575

== ENCOUNTER 2024-05-04 07:36 | Outpatient (CLI) | payer BC, SELFPAY ==
[2024-05-04 07:46] VITALS: BP 123/82; PULSE 88; PULSE 92; RESP 16; TEMP 36.8; O2SAT 96
[2024-05-04 07:55] VITALS: BMI 32.9
--- NOTE | 2024-05-04 09:00 | OB.TRI.NOTE ---
HPI - General General Date of Service: 05/04/24 HPI Narrative BEATRIZ ESQUIVEL, is a 28 F who presents for NST with polyhydramnios. PFSH PFSH Medical History (Updated 05/04/24 @ 09:[address] Chun Herbert MD) Liver mass Kidney stone (spontaneous vaginal delivery) Home Medications ?Medication ?Instructions ?Recorded ?Last Taken ?Type lansoprazole 30 mg capsule,delayed 30 mg PO DAILY 4 weeks #28 caps 08/01/21 Unknown Rx release (Prevacid) Allergy/AdvReac Type Severity Reaction Status Date / Time Penicillins Allergy Anaphylaxis Verified 08/01/21 15:07 Surgical History (Updated 04/18/21 @ 08:10 by Ximena Holt) History of surgery Social History (Updated 04/18/21 @ 07:26 by Ximena Holt) adopted: No household members: significant other and children housing: house Smoking Status: Current some day smoker tobacco type: e-cigarettes History Elective abortions Hx Para 2 Spontaneous abortions Hx # Term Pregnancies Ectopic pregnancies Hx # Pregnancies Multiple births # of living children NST FHR Rate Baby A Baseline: 135 Variability:: Moderate Accelerations:: 15 x 15 Decelerations:: None NST Reactive:: Yes Uterine Activity:: irregular Assessment & Plan (1) Polyhydramnios: QUALIFIERS: Fetus number: single or unspecified fetus Trimester: third trimester Qualified Code(s): O40.3XX0 - Polyhydramnios, third trimester, not applicable or unspecified PLAN: Reactive NST
== END 2024-05-04 09:25 | disposition home or self-care (01) ==
LOC: WPOUT 07:42 → WP 07:42
PROVIDERS: Referring Provider Obstetrics & Gynecology; Visit Provider Obstetrics & Gynecology
DX: O40.3XX0 Polyhydramnios, third trimester, not applicable or unspecified (principal); F17.290 Nicotine dependence, other tobacco product, uncomplicated; O99.333 Smoking (tobacco) complicating pregnancy, third trimester; Z3A.00 Weeks of gestation of pregnancy not specified
CPT/HCPCS: 59025; 59050; 99221; G0378

== ENCOUNTER 2024-05-05 07:32 | Inpatient (IN) | payer BC, SELFPAY ==
[2024-05-05] VITALS (83 sets, daily range): BP systolic 122–163; BP diastolic 63–102; PULSE 72–116; RESP 15–16; TEMP 36.1–37.1; O2SAT 87–100; BMI 32.8
[2024-05-05] MEDS: Lactated Ringers 1,000 ML 200 ML IV (08:05)
[2024-05-05] MEDS: Oxytocin 15 Units/NS 250ml 15 UNITS/250 ML IV.SOLN 2 UNITS IV (08:22)
[2024-05-05 08:29] LABS: Absolute Lymphocyte Count 2.53 X10^3/uL (0.83-4.51); Absolute Neutrophil Count 7.3 X10^3/uL (2.0-7.7); Basophil# 0.03 X10^3/uL; Basophil% 0.3 % (0-1); Eosinophils% 0.9 % (0-5); Hematocrit 33.5 % (37-47); Hemoglobin 11.3 g/dL (12.0-15.0); Lymphocyte # 2.53 X10^3/ul (0.83-4.51); Lymphocyte % 23.2 % (19-41); Mean Corp Hgb Conc 33.7 g/dL (32-36); Mean Corpuscular Hgb 30.1 pg (27.0-32.0); Mean Corpuscular Volume 89.3 fL (81-99); Mean Platelet Vol. 10.3 fl (6.2-12.0); Monocyte# 0.79 X10^3/uL; Monocyte% 7.2 % (0-10); NRBC Flagged by Analyzer 0.2 % (0-5); Neutrophil # 7.34 X10^3/uL (2.7-7.7); Neutrophil % 67.2 % (47-70); Platelet Count 195 K/mm3 (150-450); RBC Distribution Width CV 13.7 % (11.6-14.6); RBC Distribution Width SD 44.9 fl (35.1-43.9); Red Blood Count 3.75 M/mm3 (4.2-5.4); White Blood Count 10.9 K/mm3 (4.4-11.0)
[2024-05-05 08:58] LABS: Syphilis Antibodies Non-reactive
[2024-05-05 08:59] LABS: Amphetamine Urine VISTA NEGATIVE (<1000 ng/mL); Barbiturate Urine VISTA NEGATIVE (< 200 ng/mL); Benzodiazepine Urine VISTA NEGATIVE (< 200 ng/mL); Cocaine Urine VISTA NEGATIVE (< 300 ng/mL); Ecstacy Urine VISTA NEGATIVE (< 500 ng/mL); Methadone Urine VISTA NEGATIVE (< 300 ng/mL); PCP Urine VISTA NEGATIVE (< 25 ng/mL); THC Urine VISTA POSITIVE (< 50 ng/mL); Vista UDS pH Range 6
--- NOTE | 2024-05-05 09:02 | PCM.HP.OB ---
HPI - General General Date of Admission: 05/05/24 HPI Narrative BEATRIZ ESQUIVEL, is a 28 F at 39.5 weeks gestation who presents for scheduled induction of labor. has been complicated by poor care, tobacco use, THC use, anxiety and depression. She has a history of LGA at 10 lbs. GBS negative. Maternal Data Information HELDER Calculator Estimated Delivery Date Method Current WG Current Estimate 05/07/24 Manual 39w 5d PFSH PFSH Medical History (Updated 05/05/24 @ 09:07 by Jennifer Perez CNM) Liver mass Kidney stone (spontaneous vaginal delivery) Home Medications ?Medication ?Instructions ?Recorded ?Last Taken ?Type lansoprazole 30 mg capsule,delayed 30 mg PO DAILY 4 weeks #28 caps 08/01/21 Unknown Rx release (Prevacid) Allergy/AdvReac Type Severity Reaction Status Date / Time Penicillins Allergy Anaphylaxis Verified 05/05/24 07:31 Surgical History (Updated 04/18/21 @ 08:10 by Ximena Holt) History of surgery Social History (Updated 04/18/21 @ 07:26 by Ximena Holt) adopted: No household members: significant other and children housing: house Smoking Status: Current every day smoker tobacco type: e-cigarettes History Elective abortions Hx Para 3 Spontaneous abortions Hx # Term Pregnancies Ectopic pregnancies Hx # Pregnancies Multiple births # of living children NST FHR Rate Baby A Baseline: 135 Variability:: Moderate Accelerations:: None Decelerations:: None NST Reactive:: Yes FHR Category:: Category I Uterine Activity:: irritability ROS Eyes Eyes: Denies blurry vision, change in vision or spots in vision ENT HEENT: Denies dizziness or headache(s) Cardiovascular Cardiovascular: Denies abdominal pain, chest pain or dyspnea Respiratory/Chest Respiratory/Chest: Denies cough, dyspnea, shortness of breath at rest or shortness of breath with exertion Gastrointestinal Gastrointestinal: Denies abdominal pain, diarrhea or vomiting Genitourinary Genitourinary: Denies change in urinary stream, difficulty urinating or dysuria Musculoskeletal Musculoskeletal: Reports none Integumentary Integumentary: Denies rash Neurologic Neurologic: Denies dizziness, headache(s), memory loss or weakness Psychiatric Psychiatric: Reports none Vital Signs Vital Signs Vital Signs: 05/05/24 07:28 05/05/24 07:28 05/05/24 07:28 Temperature Temperature Source Temporal Pulse Rate 88 Respiratory Rate Blood Pressure 124/73 H BP Systolic 124 BP Diastolic 73 05/05/24 07:28 05/05/24 07:28 Temperature 97.9 F Temperature Source Pulse Rate Respiratory Rate 16 Blood Pressure BP Systolic BP Diastolic Weight Weight: 222 lb Body Mass Index (BMI) 32.8 Physical Exam Const alert and no apparent distress General Appearance: cooperative and comfortable Exam Limitations: no limitations HEENT normocephalic Eyes General Eye: normal appearance of both eyes Neck full ROM General: normal visual inspection Chest Chest: symmetrical chest wall rise Resp normal respiratory effort and normal air movement Effort and Inspection: symmetric chest movement Auscultation: clear to auscultation bilaterally Cardio regular rate and regular rhythm GI normal to inspection, nondistended, normoactive bowel sounds Back/Spine normal ROM Extremity full ROM and no calf tenderness General Extremity: normal exam except as noted Skin no rashes or lesions noted Neuro CN's II-XII intact bilaterally Psych mental status grossly normal Labs Labs Labs: Blood Type O POSITIVE Antibody Screen NEGATIVE Hct 33.5 % (37-47) L Hgb 11.3 g/dL (12.0-15.0) L Syphilis Total Ab Non-reactive Rubella IgG Antibody Reactive (Nonreactive) Hep Bs Antigen Non-Reactive (Nonreactive) Hepatitis C Antibody Non-Reactive (Nonreactive) Chlamydia DNA ([facility]) Negative (Negative) N.gonorrhoeae DNA ([facility]) Negative (Negative) HIV 1&2 Antibody Non-Reactive (Nonreactive) Glucose 1 Hr 50 gm 103 mg/dL (70-140) Rhogam given: No GBS negative Assessment & Plan (1) Polyhydramnios: QUALIFIERS: Fetus number: single or unspecified fetus Trimester: third trimester Qualified Code(s): O40.3XX0 - Polyhydramnios, third trimester, not applicable or unspecified (2) 39 weeks gestation of : (3) Encounter for induction of labor: (4) Tobacco use affecting , antepartum: (5) Marijuana use during : (6) Anxiety and depression: PLAN: Plan Admit to L&D Routine labs GBS negative CE by nursing is 50/-3 Pitocin 2 mu IV and increase per orders Epidural when indicated Anticipate Dr. Obregon notified of admission and is collaborating physician
[2024-05-05] MEDS: LACTATED RINGERS 500 ML 999 ML IV (11:06)
[2024-05-05] MEDS: Lactated Ringers 1,000 ML 999 ML IV (11:39)
[2024-05-05] MEDS: fentaNYL-bupivacaine (epidural) 100 ML BAG EPIDURAL ×2 (12:18→16:44)
--- NOTE | 2024-05-05 18:24 | PN.OBGYN_ITS ---
Subjective Subjective Patient seen at bedside. Comfortable with epidural. Denies any pain. Objective Data Objective Data Vital Signs: Vital Signs Temp Pulse Resp BP Pulse Ox 98.7 F 76 16 122/63 H 100 05/05/24 17:30 05/05/24 17:30 05/05/24 17:30 05/05/24 17:30 05/05/24 13:32 Weight: 222 lb Body Mass Index (BMI) 32.8 Intake & Output: Intake and Output for Last 24 Hours 05/03/24 05/04/24 05/05/24 23:59 23:59 23:59 Intake Total 2482.73 / 2482.73 Output Total 900 / 900 Balance 1582.73 / 1582.73 Lab / Micro Data 05/05/24 08:05 Labs: Laboratory Results - last 24 hr 05/05/24 08:05: WBC 10.9, RBC 3.75 L, Hgb 11.3 L, Hct 33.5 L, MCV 89.3, MCH 30.1, MCHC 33.7, RDW Std Deviation 44.9 H, RDW Coeff of Josef 13.7, Plt Count 195, MPV 10.3, Immature Gran % (Auto) 1.200 H, Neut % (Auto) 67.2, Lymph % (Auto) 23.2, Branch % (Auto) 7.2, Eos % (Auto) 0.9, Baso % (Auto) 0.3, Absolute Neuts (auto) 7.3, Absolute Lymphs (auto) 2.53, Nucleated RBC % 0.2, Urine Opiates Screen NEGATIVE 05/05/24 08:05: Urine Opiates Screen Cancelled, Urine Methadone Screen NEGATIVE 05/05/24 08:05: Urine Methadone Screen Cancelled, Ur Barbiturates Screen NEGATIVE 05/05/24 08:05: Ur Barbiturates Screen Cancelled, Ur Phencyclidine Scrn NEGATIVE 05/05/24 08:05: Ur Phencyclidine Scrn Cancelled, Ur Amphetamines Screen NEGATIVE 05/05/24 08:05: Ur Amphetamines Screen Cancelled, MDMA (Ecstasy) Screen NEGATIVE 05/05/24 08:05: MDMA (Ecstasy) Screen Cancelled, U Benzodiazepines Scrn NEGATIVE 05/05/24 08:05: U Benzodiazepines Scrn Cancelled, Urine Cocaine Screen NEGATIVE 05/05/24 08:05: Urine Cocaine Screen Cancelled, U Cannabinoids Screen POSITIVE H 05/05/24 08:05: U Cannabinoids Screen Cancelled, Ur Drug Screen Comment 05/05/24 08:05: Ur Drug Screen Comment Cancelled, Syphilis Total Ab Non- reactive, Blood Type O POSITIVE, Antibody Screen NEGATIVE Assessment & Plan (1) Anxiety and depression: (2) Marijuana use during : (3) Tobacco use affecting , antepartum: (4) Encounter for induction of labor: (5) 39 weeks gestation of : (6) Polyhydramnios: QUALIFIERS: Fetus number: single or unspecified fetus Trimester: third trimester Qualified Code(s): O40.3XX0 - Polyhydramnios, third trimester, not applicable or unspecified PLAN: Plan CE /-2 AROM for copious amount of clear fluid NST reactive, Cat. 1 tracing Continue Pitocin IV and increase per orders- currently at 16 mu/min Anticipate
[2024-05-05] MEDS: Oxytocin 15 Units/NS 250ml 15 UNITS/250 ML IV.SOLN 334 UNITS IV (20:13)
--- NOTE | 2024-05-05 20:34 | EX.PCM.OBRPT ---
Assessment & Plan (1) Anxiety and depression: (2) Marijuana use during : (3) Tobacco use affecting , antepartum: (4) Polyhydramnios: QUALIFIERS: Fetus number: single or unspecified fetus Trimester: third trimester Qualified Code(s): O40.3XX0 - Polyhydramnios, third trimester, not applicable or unspecified (5) (spontaneous vaginal delivery): (6) Laceration, obstetrical, first degree: Maternal Data Information HELDER Calculator Estimated Delivery Date Method Current WG Current Estimate 05/07/24 Manual 39w 5d Vaginal Delivery Maternal Presentation Maternal Presentation: Medically Indicated Induction Maternal Presentation: at 39.5 weeks for induction of labor for polyhydramnios. Type of Induction: Pitocin and Amniotomy Medical Reason for Induction: - (polyhydramnios) Operative Information Date of Procedure: 05/05/24 Pre-Operative Diagnosis: Term gestation, induction of labor Post-Operative Diagnosis: , Live male infant Surgery / Procedure Performed: Spontaneous Vaginal Delivery Type of Anesthesia: Epidural Drain: Golden to straight drain Estimated Blood Loss: 150 Time of Delivery: 20:10 Findings Description of Procedure: Called to patient room. Patient found to be complete dilation and +2 station. With minimal maternal effort, head delivered in JUANI position. Left infant arm/hand found next to infant face. Anterior shoulder delivered with minimal downward traction for less than 5 seconds followed by remainder of body. Vigorous male placed on maternal abdomen and attended to by nursing staff. Pitocin IV started for active management of the third stage of labor. 3 vessel cord clamped and cut by FOB after delay and placed skin to skin. Cord blood collected and sent. Placenta delivered spontaneously and intact. Small first degree laceration repaired to obtain homeostasis. EBL 150 cc. APGARS 8/9. Patient and infant bonding well at this time. notified of delivery. Presentation: Vertex and JUANI (compound hand/arm presentation) Amniotic Membrane Rupture Type: Artificial Time of Membrane Rupture: 1739 Amniotic Fluid Description: Clear (copious amount) Placental Delivery Description: Spontaneous Placenta Disposition: [facility] Cord Vessel Description: 3 Vessels Cord Entanglement: None A Gender: Male (1 minute): 8 (5 minute): 9 Delayed Cord Clamping: Yes Post Vaginal Delivery Medications Given After Delivery: IV Pitocin Episiotomy Description: None Laceration: 1st degree Complication Complications: None
[2024-05-05] MEDS: Oxytocin 15 Units/NS 250ml 15 UNITS/250 ML IV.SOLN 83 UNITS IV (20:58)
[2024-05-06] VITALS (12 sets, daily range): BP systolic 112–143; BP diastolic 60–88; PULSE 74–91; RESP 16; TEMP 36.3–36.6; O2SAT 94–98
--- NOTE | 2024-05-06 04:47 | NURSING ---
pt missed hat. states she felt like she completely emptied her bladder.
--- NOTE | 2024-05-06 07:57 | PCM.PN.OB ---
Subjective Subjective Patient is doing well. Pain is well-controlled. She is ambulating and voiding without difficulty. Lochia is normal. She denies chest pain, shortness of breath, lightheadedness, leg pain. She offers no complaints this morning. Objective Data Objective Data Vital Signs: Vital Signs Temp Pulse Resp BP Pulse Ox O2 Del Method 97.3 F L 83 16 112/60 94 Room Air 05/06/24 03:34 05/06/24 03:34 05/06/24 03:34 05/06/24 03:34 05/06/24 03:34 05/06/24 03:34 Oxygen Delivery Method Room Air Weight: 222 lb Body Mass Index (BMI) 32.8 Intake & Output: Intake and Output for Last 24 Hours 05/04/24 05/05/24 05/06/24 23:59 23:59 23:59 Intake Total 2806.00 / 2806.00 250 / 250 Output Total 1300 / 1300 1200 / 1200 Balance 1506.00 / 1506.00 -950 / -950 Lab / Micro Data 05/05/24 08:05 Labs: Laboratory Results - last 24 hr 05/05/24 08:05: WBC 10.9, RBC 3.75 L, Hgb 11.3 L, Hct 33.5 L, MCV 89.3, MCH 30.1, MCHC 33.7, RDW Std Deviation 44.9 H, RDW Coeff of Josef 13.7, Plt Count 195, MPV 10.3, Immature Gran % (Auto) 1.200 H, Neut % (Auto) 67.2, Lymph % (Auto) 23.2, [place] % (Auto) 7.2, Eos % (Auto) 0.9, Baso % (Auto) 0.3, Absolute Neuts (auto) 7.3, Absolute Lymphs (auto) 2.53, Nucleated RBC % 0.2, Urine Opiates Screen NEGATIVE 05/05/24 08:05: Urine Opiates Screen Cancelled, Urine Methadone Screen NEGATIVE 05/05/24 08:05: Urine Methadone Screen Cancelled, Ur Barbiturates Screen NEGATIVE 05/05/24 08:05: Ur Barbiturates Screen Cancelled, Ur Phencyclidine Scrn NEGATIVE 05/05/24 08:05: Ur Phencyclidine Scrn Cancelled, Ur Amphetamines Screen NEGATIVE 05/05/24 08:05: Ur Amphetamines Screen Cancelled, MDMA (Ecstasy) Screen NEGATIVE 05/05/24 08:05: MDMA (Ecstasy) Screen Cancelled, U Benzodiazepines Scrn NEGATIVE 05/05/24 08:05: U Benzodiazepines Scrn Cancelled, Urine Cocaine Screen NEGATIVE 05/05/24 08:05: Urine Cocaine Screen Cancelled, U Cannabinoids Screen POSITIVE H 05/05/24 08:05: U Cannabinoids Screen Cancelled, Ur Drug Screen Comment 05/05/24 08:05: Ur Drug Screen Comment Cancelled, Syphilis Total Ab Non-reactive, Blood Type O POSITIVE, Antibody Screen NEGATIVE Physical Exam Const alert and no apparent distress Constitutional Narrative: Holding baby General Appearance: comfortable HEENT normocephalic Resp normal respiratory effort GI soft to palpation, non-tender and non-distended GI Narrative: FF@U-1 Extremity normal to inspection and no calf tenderness Assessment & Plan (1) Laceration, obstetrical, first degree: (2) (spontaneous vaginal delivery): PLAN: PPD#1 s/p . Routine care. Anticipate discharge tomorrow. (3) Anxiety and depression: (4) Marijuana use during : (5) Tobacco use affecting , antepartum:
[2024-05-06] MEDS: Naproxen 500 MG Tablet PO (08:42)
--- NOTE | 2024-05-06 11:14 | CASEMGMT ---
Social Work Assessment Labor and Delivery Unit Patient Address:[facility] [place] [address] [address] Phone number: [phone] Date of Referral: 05/05/24 Time of Referral:? [id number] Referred By: Jennifer Perez Date of Intervention: ??05/06/24 Time of Intervention:? 1000 Reason for Referral:? THC and depression Sw completed chart review and acknowledges social work consult due to maternal mental health and THC use. Sw presented to bedside and introduced self to mother of baby (NGOZI Acosta) and explained sw role during hospitalization. Sw completed psychosocial assessment and asked MOB to complete Meeker Depression Scale. History obtained from: medical records, MOB Household composition: TONY states that currently residing in the family home is herself, father of baby (LYNETTE- Juanito Diaz), their two older children: Verna (5) and John (3). TONY has one other child, Lizeth who resides with her father in [place]. LYNETTE also has another child, who does not reside with him time study clerk. TONY denies any issues or concerns with their current residence at this time. Patient's parent/guardian status:? ?TONY states that she was residing in [place] when she met FOEvaristo while working in [employer] and he was a security systems sales representative. TONY states that she and LYNETTE have now been together for 7 years. TONY states that she and LYNETTE may have disagreements, and she at times will get frustrated with him, but denies any domestic violence or intimate partner violence. Medical History: ?TONY is 28 year old female who is 4, para 3- now 4 following labor and delivery. TONY received routine care during with [facility]. TONY presented to hospital for an induction of labor on 05/05/24 due to polyhydramnios. Baby was born on 05/05/24 via vaginal delivery at 39 weeks gestation. Baby boy, named Salbador, was born weighing 9lb 15oz. TONY states that she is working on breast feeding. Baby will be followed by Dr. Corazon Kirkland for pediatrics. Educational Status:? TONY states that she graduated from high school and obtained some college education but did not graduate. Financial Status: Both parents are gainfully employed outside of the home. FOEvaristo works for [employer]. TONY works for [employer] and is able to take 6 weeks off of work. Supplies:?? TONY states that she has obtained all necessary baby supplies, including: car seat, safe sleep space, clothes, diapers and wipes. Childcare/Caregiver(s):? TONY states that she will be the primary caregiver to baby along with LYNETTE when he is not working. Transportation:?? Both parents have their drivers license and reliable means of transportation. No barriers at this time. Programs/Agencies Involved: ???TONY is not connected to any beneficial or financial resources due to being over income. Children Services/Legal Issues:??? MOB denies former history/ involvement with children services. Sw to make referral to [facility] due to maternal substance use of THC throughout . - Sw called [facility] and spoke to hotline screener: Karla. Behavioral Health Issues: ??Mental Health History:??MOB states that LYNETTE does not have any mental health diagnoses. TONY reports to being formerly diagnosed with anxiety and depression. MOB states that she has tried pharmacological medications in the past to help manage her mental health symptoms, but did not find them beneficial. MOB states that she has prior trauma's that she knows she has not processed. MOB states that there are times when she starts to feel overwhelmed and anxious, and when that happens she likes to be alone and have a good cry. ?TONY completed Meeker Depression Scale, her score was a 13. Sw provided education and support. Sw informed TONY of benefits of getting connected to a mental health support/ services for counseling/ therapy and medication management. TONY states that she knows she should seek mental health involvement, but has not up until this point because she does not want to address traumas and reprocess them. Cody educated TONY on generational trauma and encouraged TONY to look through the mental health resource list that cody provided for her. MOB agreed. Substance Use History: TONY states that she has used marijuana to self medicate her mental health since she was in 5th grade. MOB states that she does not smoke around her children, however feels more like herself after she smokes. MOB states that her use is not daily, but a few times a week. ?? Family History:?MOB states that both of her parents have a substance use history. MOB states that she is not close to her father, but does talk to her mom via video chat every couple of days. Sw educated MOB on being mindful of her genetic predisposition of substance use disorders and encouraged MOB to utilize healthy and appropriate coping skills when she feels overwhelmed or anxious. ? Drug Screens: ??MOB toxicology screen at time of delivery was positive for THC, baby's toxicology still pending at this time. Family/Social Stressors:? MOB states that her mental health is her biggest point of stress at this time. MOB states that she is aware that there are underlying contributing factors to her mental health, and she has not been open to addressing them until now. Support Systems: MOB states that FOB is her biggest support person at this time. MOB states that her mom is also supportive, but still lives in [place]. MOB states that her sister in law is also a good support person. Depression/Shaken Baby/Safe Sleeping:? Sw educated MOB on signs and symptoms of baby blues and mood and anxiety disorders. Sw pointed out MOB's history and mental health diagnoses ands how she is predisposed to experiencing mood disorders during this period. MOB expressed understanding. MOB states that if she were to struggle with FOB would be able to recognize that she is struggling and would know how to help and support her. Sw educated MOB to shaken baby prevention and ABCs of safe sleep. ASSESSMENT:? MOB and baby currently admitted following labor and delivery of . MOB with mental health history of anxiety and depression, and reports that she believes she may also have undiagnosed ADHD/ ADD and Bipolar. MOB with THC use throughout , self reporting to self medicate her mental health due to failed attempts at medications in the past. TONY has obtained all necessary baby supplies and has some natural supports in place. MOB was observed to provide hands on loving and appropriate hands on care to baby. MOB talkative and opened up throughout completion of psychosocial assessment. Safe Plan of Care for related to substance use:?MOB educated to abstain from substance use of all kind, including THC now that baby has been born. MOB states that she is open to getting connected to mental health services and supports in order to stop using THC. PLAN:? MOB and baby to be discharged when medically ready. Should Children Services decide to open up a case they will follow with family at home. ?No other services requested or indicated. Antonieta Golden, GLOVE MACHINE OPERATOR, COMMUNITY ASSISTANT
--- NOTE | 2024-05-06 17:56 | DCINST_ITS ---
Discharge Instructions Diet Discharge Diet: No restrictions Activity Discharge Activity: May Drive and May Shower May resume sexual activity in: 6 weeks (nothing in the vagina and no soaking in water) Ice area for (Minutes): 15 Weight Bearing Status: Weight bearing as tolerated Lifting Restrictions: nothing heavier than baby Dressing / Incision Call your doctor if you observe: Fever of 101 or Higher, Coldness, Increased Pain, Numbness or Tingling, Change in Color, Inability to urinate, Inability to have a bowel movement, Using more than 1 pad per hour, Shortness of breath, Dizziness, Fainting spells, Swelling in the ankles, Chest pain, Prolonged hiccupping, Increased palpitations (irregular heartbeat), Calf discomfort and Uncontrolled pain Cleanse incision/area with: Soap & Water Follow Up Care When: 1-2 weeks early 6 weeks exam Test Results: Test results from this visit will be discussed in further detail at your follow- up appointment, if applicable. Discharge Plan Admission Admit Date/Time: 05/05/24 07:32 Primary Reason for Your Visit: delivery Attending Provider: Jennifer Perez Primary Care Provider: Care Physician,Cynthia Primary Instructions Patient Instructions: After a Vaginal Discharge Orders/Prescriptions Referrals / Follow Up: Care Physician,No Primary [Primary Care Provider] - Disposition Disposition (needs filled in before D/C Order can be placed): Home, Self Care
== END 2024-05-06 22:00 | disposition home or self-care (01) | DRG 806 ==
PROVIDERS: Obstetrics & Gynecology; Admitting Provider Advanced Practice Midwife; Visit Provider Advanced Practice Midwife
DX: O40.3XX0 Polyhydramnios, third trimester, not applicable or unspecified (principal); Z37.0 Single live birth; O99.324 Drug use complicating childbirth; F32.A Depression, unspecified; F41.9 Anxiety disorder, unspecified; F17.210 Nicotine dependence, cigarettes, uncomplicated; O70.0 First degree perineal laceration during delivery; Z3A.39 39 weeks gestation of pregnancy; O99.344 Other mental disorders complicating childbirth; F12.99 Cannabis use, unspecified with unspecified cannabis-induced disorder; O99.334 Smoking (tobacco) complicating childbirth
CPT/HCPCS: 59025; 59050; 80307; 85025; 86780; 86850; 86900; 86901; 99221; J7120; G0378

== ENCOUNTER 2024-09-30 20:06 | Emergency (ER) | payer BC, SELFPAY ==
[2024-09-30 20:06] VITALS: BP 150/97; PULSE 100; RESP 18; TEMP 36.8; O2SAT 100; BMI 26.9
[2024-09-30 20:28] LABS: Mucous, Urine 0 SEEN /hpf (<or=2+)
[2024-09-30 20:34] LABS: Color, Urine Yellow (Yellow); Glucose, Dipstick Normal (Normal); Ketone-Dipstick Negative (Negative); Leukocyte Esterase-Dipstick 25 /ul (Negative); Nitrite-Dipstick Negative (Negative); Occult Blood-Urine 10 /ul (Negative); Protein-Dipstick 15 mg/dl (Negative); Urine Bilirubin Dipstick Negative (Negative); Urine Clarity Clear (Clear); Urine Urobilinogen Normal (Normal)
--- NOTE | 2024-09-30 20:36 | CT_ITS ---
STUDY: CT ABDOMEN AND PELVIS WITH CONTRAST REASON FOR EXAM: Female, 29 years old. abdominal pain RADIATION DOSAGE (If Supplied By Facility): CTDIvol = ( 13.10 ) mGy, DLP = ( 902.36 ) mGycm TECHNIQUE: Transaxial images were obtained from the dome of the diaphragm to the symphysis pubis without oral contrast. IV 100mL Isovue-370 was administered. Sagittal and coronal images were reconstructed. Individualized dose optimization techniques were used for this CT. The protocol utilizes one or more of the following dose reduction techniques: automated exposure control, adjustment of mA and/or kV according to patient size,and/or use of iterative reconstruction technique. COMPARISON: MR abdomen August 17, 2021. CT abdomen and pelvis August 01, 2021. FINDINGS: The visualized lung bases are unremarkable. The visualized portions of the heart are within normal limits. 13 mm irregular mixed density lesion left lobe of the liver. This appears somewhat smaller allowing for difference in technique. There appears to be some peripheral nodular enhancement. 2 cm hypodense lesion at the periphery of the medial segment of the left lobe of the liver is also noted. This appears more conspicuous. Gallbladder surgically absent. Normal spleen. Normal pancreas. Normal bilateral adrenal glands. Normal right kidney. Normal left kidney. Normal visualized stomach. Normal small intestine. Normal colon. The appendix is visualized and appears normal. Normal abdominal aorta. Normal inferior vena cava. Normal retroperitoneum. Normal urinary bladder. Uterus normal. Multiple right adnexal cyst measuring up to 2.4 cm. [Moderate free fluid in the pelvis. Normal abdominal wall. Normal osseous structures. CT/Abdomen/Pelvis W IV Cont ONLY IMPRESSION: Hepatic lesions as noted above. Recommend follow-up hepatic MRI. Right adnexal cyst and moderate free fluid in the pelvis. Pelvic ultrasound may be helpful. Electronically Signed: Derik Butler MD at 22:25 EST ,
--- NOTE | 2024-09-30 20:37 | EX.ED.DYSGE1 ---
HPI History of Present Illness Chief Complaint: Abd Pain Informant: patient Narrative Narrative: 29-year-old female presenting to the emergency room with a primary complaint of right-sided abdominal pressure discomfort. Patient states for the past month she has been losing weight her hair has been falling out patient notes that she still has this discomfort on the right side of her abdomen seems to be worse when she eats so she has been eating less. She denies any urinary symptoms or fever. Patient notes no dysuria. States that she is thirsty all the time and her lips are cracked and she wonders if she has diabetes. She states that she cannot control her emotions and she is very tearful at times. She notes the pressure/discomfort in the abdomen is not worse when she pushes but when she lets go. And has not been constant over the past month has become more recurrent. Patient is about 5 months and breast-feeding. [facility] Medical History (spontaneous vaginal delivery) Depression Liver mass Kidney stone Home Medications ?Medication ?Instructions ?Recorded ?Last Taken ?Type NK 09/30/24 Unknown History Allergy/AdvReac Type Severity Reaction Status Date / Time Penicillins Allergy Anaphylaxis Verified 09/30/24 20:08 Surgical History History of surgery Social History adopted: No household members: significant other and children housing: house Smoking Status: Current every day smoker tobacco type: cigarettes and e-cigarettes ROS ROS ED Constitutional Constitutional ED: Reports sweats and weight loss; Denies chills or fever(s) Eyes Eyes: Denies change in vision or diplopia ENT ENT ED: Reports other Details: Dry mouth ; Denies ear pain, rhinorrhea or sore throat Cardiovascular Cardiovascular: Denies chest pain, orthopnea, palpitations or racing heartbeat Respiratory/Chest Respiratory/Chest: Denies cough, dyspnea or orthopnea Gastrointestinal Gastrointestinal: Reports abdominal pain and other Details: Decreased appetite ; Denies diarrhea, nausea or vomiting Genitourinary Genitourinary ED: Denies dysuria, hematuria or urinary frequency Musculoskeletal Musculoskeletal: Denies arthralgias or myalgias Integumentary Denies abscess or rash Neurologic Neurologic: Denies headache(s) or weakness Psychiatric Psychiatric: Reports anxiety; Denies depression, suicidal ideation or suicidal thoughts Endocrine Endocrinology: Reports polydipsia; Denies polyphagia or polyuria Allergic/Immunologic Allergic/Immunologic ED: Denies mouth swelling, tongue swelling or urticaria EXAM Physical Exam Const Vital Signs: 09/30/24 20:06 Temperature 98.3 F Temperature Source Oral Pulse Rate 100 Respiratory Rate 18 Blood Pressure 150/97 H Blood Pressure Mean 114 Pulse Ox 100 Oxygen Delivery Method Room Air Positive well nourished and well developed General Appearance ED: well developed HEENT Reports normocephalic, head/scalp atraumatic and moist mucous membranes Eyes PERRL and EOMs intact bilaterally Neck no lymphadenopathy, supple and no JVD Resp normal respiratory effort and clear to auscultation bilaterally Cardio regular rate, regular rhythm and no murmurs GI normal to inspection, nondistended, normoactive bowel sounds and non-tender Palpation: soft Back/Spine no CVA tenderness and normal ROM Extremity normal to inspection General Extremety ED: Negative for edema General Extremity: Negative for edema Neuro oriented x3 and CN's II-XII intact bilaterally Sensorium / Orientation: alert Motor Exam: strength 5/5 throughout Psych mental status grossly normal Mood & Affect: anxious and tearful; Negative for depressed Skin no rashes or lesions noted and no wounds MDM MDM MDM Narrative Medical decision making narrative: Differential diagnosis includes but not limited to appendicitis colitis pelvic abscess ovarian cyst UTI Basic blood work was rather unremarkable. This included a TSH is normal at 1.12 normal LFTs glucose 112 white count 6.7 hemoglobin of 12. test is negative. Urinalysis no overt infection. CT then pelvis was obtained read by radiology reviewed by myself. This is consistent with a right sided ovarian cyst. There were liver lesions noted. She states she has recently had a liver surgery for something like this. She she saw [facility] But cannot remember the surgeon's name. I can have them send the CT in to [facility] so that her surgeon can evaluate this would recommend that she follow-up with him. We also spent a good deal of time talking about her overall mental health. She is by 5 months. She feels very stressed and anxious about it. Part of this could be depression anxiety can be changes. 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 History & Record Review Discussion w/independent historian: Patient Additional record(s) reviewed:: Prior inpatient record Lab Data Attestation: I reviewed the patient's lab results. Labs: Laboratory Results - last 24 hr 09/30/24 09/30/24 20:23 20:45 WBC 6.7 RBC 4.08 L Hgb 12.0 Hct 35.1 L MCV 86.0 MCH 29.4 MCHC 34.2 RDW Std Deviation 36.4 RDW Coeff of Josef 11.9 Plt Count 269 MPV 9.9 Immature Gran % (Auto) 0.100 Neut % (Auto) 54.3 Lymph % (Auto) 34.8 [place] % (Auto) 8.3 Eos % (Auto) 2.1 Baso % (Auto) 0.4 Absolute Neuts (auto) 3.7 Absolute Lymphs (auto) 2.34 Nucleated RBC % 0 Sodium 140 Potassium 3.4 L Chloride 108 H Carbon Dioxide 26.0 Anion Gap 6 BUN 8 Creatinine 0.68 Estim Creat Clear Calc 137.70 Est GFR (MDRD) Af Amer 130 Est GFR (MDRD) Non-Af 108 BUN/Creatinine Ratio 11.8 Glucose 112 H Calcium 9.3 Total Bilirubin 0.20 Direct Bilirubin 0.10 AST 9 L ALT 28 Alkaline Phosphatase 97 Total Protein 6.9 Albumin 4.0 Globulin 2.9 Lipase 34 TSH 1.120 Serum , Qual NEGATIVE Urine Color Yellow Urine Clarity Clear Urine pH 6.0 Ur Specific [place] 1.020 Urine Protein 15 H Urine Glucose (UA) Normal Urine Ketones Negative Urine Occult Blood 10 H Urine Nitrite Negative Urine Bilirubin Negative Urine Urobilinogen Normal Ur Leukocyte Esterase 25 H Urine RBC 0-5 SEEN Urine WBC 0-5 SEEN Ur Squamous Epith Cells 5-10 SEEN Urine Bacteria RARE Urine Mucus 0 SEEN Radiography Diagnostic Testing: Clinical Impression(s) from Imaging Studies Abdomen/Pelvis CT 09/30/24 20:36 IMPRESSION: Hepatic lesions as noted above. Recommend follow-up hepatic MRI. Right adnexal cyst and moderate free fluid in the pelvis. Pelvic ultrasound may be helpful. Electronically Signed: Derik Butler MD at 22:25 EST Reading Location ID and State: [facility] [place] Tel , Service support , Discharge Plan Triage Chief Complaint: Abd Pain ED Provider: Charlie Fatima Dx/Rx/DC Orders Clinical Impression: Abdominal pain, Anxiety Prescriptions: No Action NK Primary Care Provider: Care Physician,No Primary Referrals: Jennifer Perez CNM [Med Staff - Adv Practice Prof] - As soon as possible (for [facility] evaluation) Care Physician,No Primary [Primary Care Provider] - Activity Restrictions/Additional Instructions: Please follow-up with your surgeon in [place] regarding the liver findings to compare today's CT. I also recommend following up with primary care Print Language: Serbian Disposition Disposition: Home, Self Care
[2024-09-30 20:42] LABS: Bacteria RARE /hpf (None Seen); Red Blood Cells-Urine 0-5 SEEN /hpf (0-5); Squamous Epithelial Cells - UA 5-10 SEEN /hpf (5-10); White Blood Cells 0-5 SEEN /hpf (0-5)
[2024-09-30 20:53] LABS: Absolute Lymphocyte Count 2.34 X10^3/uL (0.83-4.51); Absolute Neutrophil Count 3.7 X10^3/uL (2.0-7.7); Basophil# 0.03 X10^3/uL; Basophil% 0.4 % (0-1); Eosinophil# 0.14 X10^3/uL; Eosinophils% 2.1 % (0-5); Hematocrit 35.1 % (37-47); Lymphocyte # 2.34 X10^3/ul (0.83-4.51); Lymphocyte % 34.8 % (19-41); Mean Corp Hgb Conc 34.2 g/dL (32-36); Mean Corpuscular Hgb 29.4 pg (27.0-32.0); Mean Platelet Vol. 9.9 fl (6.2-12.0); Monocyte# 0.56 X10^3/uL; Monocyte% 8.3 % (0-10); NRBC Flagged by Analyzer 0 % (0-5); Neutrophil # 3.65 X10^3/uL (2.7-7.7); Neutrophil % 54.3 % (47-70); Platelet Count 269 K/mm3 (150-450); RBC Distribution Width CV 11.9 % (11.6-14.6); RBC Distribution Width SD 36.4 fl (35.1-43.9); Red Blood Count 4.08 M/mm3 (4.2-5.4); White Blood Count 6.7 K/mm3 (4.4-11.0)
[2024-09-30 21:05] LABS: Internal QC Validated? YES +Cl - CLEAR BKGD; Pregnancy, Serum, hCG Quali. NEGATIVE Negative
[2024-09-30 21:19] LABS: AST(SGOT) 9 U/L (15-37); Alanine Aminotransfer ALT/SGPT 28 U/L (13-56); Alkaline Phosphatase 97 U/L (45-117); Anion Gap 6 (5-15); BUN 8 mg/dL (7-18); BUN/Creat Ratio 11.8 RATIO (10-20); Calcium,Total 9.3 mg/dL (8.5-10.1); Chloride 108 mmol/L (98-107); Creatinine, Serum 0.68 mg/dL (0.55-1.02); EST Glomerular Filtration Rate 108 mL/min (>60); Est Glom Filt Rate - Afr Amer 130 mL/min (>60); Globulin 2.9 g/dL (2.2-4.2); Glucose 112 mg/dL (74-106); Lipase 34 U/L (13-75); Potassium 3.4 mmol/L (3.5-5.1); Protein, Total 6.9 g/dL (6.4-8.2); Sodium Level 140 mmol/L (136-145)
[2024-09-30 22:40] VITALS: PULSE 75; RESP 18; TEMP 36.5; O2SAT 96
== END 2024-09-30 22:44 | disposition home or self-care (01) ==
PROVIDERS: Emergency Provider Emergency Medicine; Referring Provider Emergency Medicine; Visit Provider Emergency Medicine
DX: R10.9 Unspecified abdominal pain (principal); F41.9 Anxiety disorder, unspecified; F17.210 Nicotine dependence, cigarettes, uncomplicated; F17.290 Nicotine dependence, other tobacco product, uncomplicated
CPT/HCPCS: 74177; 80048; 80076; 81001; 83690; 84443; 84703; 85025; 99283; Q9967; A4216

== ENCOUNTER 2024-11-29 01:16 | Emergency (ER) | payer BC, SELFPAY ==
[2024-11-29 01:17] VITALS: BP 148/103; PULSE 75; RESP 26; TEMP 36.4; O2SAT 95; BMI 26.4
--- NOTE | 2024-11-29 01:30 | EDS_ITS ---
HPI History of Present Illness Chief Complaint: Anxiety Narrative Narrative: Chief complaint and HPI: Panic attack. 29-year-old female with past medical history of anxiety presents for evaluation of a panic attack. Patient states she has been under a lot of stress. She states she has been with her kids all day of caused increase in her stress. She states she was feeding her child when she began developing carpopedal spasm as well as facial numbness/tingling. Patient is hyperventilating on arrival, anxious, crying. Patient has a history of panic attacks in the past. Review of systems: See HPI Medications: As listed on the chart Allergies: As listed on the chart PFSH: Per chart Vital signs: As listed on the chart. Reviewed. Physical exam: Gen: Alert, oriented x 3, active panic attack Head: Normocephalic, atraumatic Eyes: No sclera icterus, conjunctiva clear, PERRL, EOMI ENT: Moist mucous membranes, No facial asymmetry Neck: Trachea midline, No JVD CV: RRR, no murmurs, no peripheral edema Resp: Lungs CTA BL, no w/r/c, hyperventilating GI: Abd soft, non-distended, non-tender, no r/r/g Musc: Full ROM, no deformity, strength +5/5 in all extremities Skin: Warm, dry, intact Neuro: Alert, oriented, grossly intact, sensation intact, no focal deficits Psych: Anxious, tearful, in active panic attack [facility] Medical History (spontaneous vaginal delivery) Depression Liver mass Kidney stone Home Medications ?Medication ?Instructions ?Recorded ?Last Taken ?Type NK 09/30/24 Unknown History Allergy/AdvReac Type Severity Reaction Status Date / Time Penicillins Allergy Anaphylaxis Verified 11/29/24 01:24 Surgical History History of surgery Social History adopted: No household members: significant other and children housing: house Smoking Status: Current every day smoker tobacco type: cigarettes and e- cigarettes EXAM Physical Exam Const Vital Signs: 11/29/24 01:17 Temperature 97.6 F L Temperature Source Oral Pulse Rate 75 Respiratory Rate 26 H Blood Pressure 148/103 H Blood Pressure Mean 118 Pulse Ox 95 Oxygen Delivery Method Room Air MDM MDM MDM Narrative Medical decision making narrative: 29-year-old female with past medical history of anxiety presents for evaluation of a panic attack. Patient endorses facial numbness/tingling as well as carpopedal spasm that is since resolved. This is likely secondary to her panic attack/hyperventilation. On presentation patient is anxious, tearful, hyperventilating. She is in that active panic attack. IV Ativan ordered. Will get basic labs to assess for electrolyte abnormality. CBC without leukocytosis or anemia. BMP relatively unremarkable except for some mild hypokalemia. On reevaluation, patient's symptoms have resolved she is calm. No longer crying, anxious, hyperventilating. Patient's symptoms was secondary to panic attack. She was educated to return back to the ED if symptoms worsen or change. Follow- up with PCP. She confirmed understand the plan. Impression: 1. Anxiety disorder 2. Panic attack Lab Data Labs: Laboratory Results - last 24 hr 11/29/24 01:40 WBC 7.5 RBC 4.27 Hgb 12.7 Hct 36.0 L MCV 84.3 MCH 29.7 MCHC 35.3 RDW Std Deviation 36.0 RDW Coeff of Josef 11.9 Plt Count 303 MPV 9.9 Sodium 140 Potassium 3.3 L Chloride 109 H Carbon Dioxide 21.0 Anion Gap 10 BUN 13 Creatinine 0.94 Estim Creat Clear Calc 98.78 Est GFR (MDRD) Af Amer 90 Est GFR (MDRD) Non-Af 74 BUN/Creatinine Ratio 13.9 Glucose 96 Calcium 8.8 Discharge Plan Triage Chief Complaint: Anxiety ED Provider: Memo Soto Dx/Rx/DC Orders Clinical Impression: Anxiety disorder with panic attacks Instructions: Anxiety Disorders Tx, Anxiety Disorders Meds, ED Panic Attack Prescriptions: No Action NK Primary Care Provider: Care Physician,No Primary Referrals: Kulwinder Soares MD [Med Staff - Active Staff] - 3-5 Days Care Physician,No Primary [Primary Care Provider] - 3-5 Days Activity Restrictions/Additional Instructions: Follow-up with your primary care physician. If you do not have 1 follow-up the 1 provided above. Return back to the ED if symptoms change or worsen. Print Language: Estonian Disposition Disposition: Home, Self Care
[2024-11-29] MEDS: LORazepam 2 MG/ML Syringe 1 MG IV (01:38)
[2024-11-29 01:47] LABS: Hemoglobin 12.7 g/dL (12.0-15.0); Mean Corp Hgb Conc 35.3 g/dL (32-36); Mean Corpuscular Hgb 29.7 pg (27.0-32.0); Mean Corpuscular Volume 84.3 fL (81-99); Mean Platelet Vol. 9.9 fl (6.2-12.0); Platelet Count 303 K/mm3 (150-450); RBC Distribution Width CV 11.9 % (11.6-14.6); Red Blood Count 4.27 M/mm3 (4.2-5.4); White Blood Count 7.5 K/mm3 (4.4-11.0)
[2024-11-29 02:01] LABS: Anion Gap 10 (5-15); BUN 13 mg/dL (7-18); BUN/Creat Ratio 13.9 RATIO (10-20); Calcium,Total 8.8 mg/dL (8.5-10.1); Chloride 109 mmol/L (98-107); Creatinine, Serum 0.94 mg/dL (0.55-1.02); EST Glomerular Filtration Rate 74 mL/min (>60); Est Glom Filt Rate - Afr Amer 90 mL/min (>60); Estimated Creatinine Clearance 98.78 ml/min; Glucose 96 mg/dL (74-106); Potassium 3.3 mmol/L (3.5-5.1); Sodium Level 140 mmol/L (136-145)
[2024-11-29 02:34] VITALS: BP 110/75; PULSE 76; RESP 15; TEMP 36.4; O2SAT 96
== END 2024-11-29 02:38 | disposition home or self-care (01) ==
PROVIDERS: Emergency Provider Surgery; Visit Provider Surgery
DX: F41.0 Panic disorder [episodic paroxysmal anxiety] (principal); F17.210 Nicotine dependence, cigarettes, uncomplicated; F17.290 Nicotine dependence, other tobacco product, uncomplicated
CPT/HCPCS: 80048; 85027; 96374; 96376; 99285; A4216

== ENCOUNTER 2025-02-07 18:33 | Emergency (ER) | payer BC, SELFPAY ==
[2025-02-07 18:34] VITALS: PULSE 102; RESP 19; TEMP 36.7; O2SAT 98; BMI 25.4
--- NOTE | 2025-02-07 18:51 | EDS_ITS ---
HPI History of Present Illness Chief Complaint: Foreign Body Detail of Chief Complaint: Foreign body sensation in throat Informant: patient Onset/Context/Timing Onset: Hours Context: Sudden Onset Timing: Continuous Quality: Right of the thyroid cartilage Location: Anterior neck Current Severity: Mild Maximum Severity: Severe Worsened by: Patient states she has anxiety Relieved by: Not applicable Associated Symptoms Associated Symptoms: Initially she was having difficulty swallowing and breathing Narrative Narrative: Patient is a 29-year-old female. She was chewing on hard candy. The hard candy was the size of a chickpea. She stated when she bit on it part of it broke and the larger part went down the back of her throat. She called her mother and . She panicked. They recommended she come to the emergency department. She has had no drooling. She has been able to speak. There is no change in her voice. She has no history of esophageal strictures. Prior similar symptoms: No Recent Illness/Hospitalization: No PFSH PFSH Medical History (spontaneous vaginal delivery) Depression Liver mass Kidney stone Home Medications ?Medication ?Instructions ?Recorded ?Last Taken ?Type NK 09/30/24 Unknown History Allergy/AdvReac Type Severity Reaction Status Date / Time Penicillins Allergy Anaphylaxis Verified 11/29/24 01:24 Surgical History History of surgery Social History adopted: No household members: significant other and children housing: house Smoking Status: Current every day smoker tobacco type: cigarettes and e- cigarettes ROS ROS ED Constitutional Constitutional ED: Denies chills, fever(s), subjective or sweats ENT ENT ED: Denies ear pain, rhinorrhea or sore throat Cardiovascular Cardiovascular: Denies chest pain, orthopnea or palpitations Respiratory/Chest Respiratory/Chest: Reports dyspnea; Denies cough, dyspnea on exertion or orthopnea Gastrointestinal Gastrointestinal: Denies nausea or vomiting EXAM Physical Exam Const Vital Signs: 02/07/25 18:34 Temperature 98.1 F Temperature Source Oral Pulse Rate 102 H Respiratory Rate 19 H Pulse Ox 98 Oxygen Delivery Method Room Air Positive well nourished and well developed Constitutional Narrative: Patient is crying. She is very anxious. There is no drooling. There is no dysphonia. Patient was given a glass of water which she drank without difficulty. General Appearance ED: well developed HEENT Reports moist mucous membranes HEENT Narrative: Uvula is midline. There is no deviation tongue or protrusion. Eyes PERRL and EOMs intact bilaterally General Eye ED: Negative for pale conjunctiva or scleral icterus Neck no lymphadenopathy, supple and no JVD Neck Narrative: Trachea is midline. There is no inspiratory expiratory stridor. Resp clear to auscultation bilaterally Cardio regular rate, regular rhythm, S1 normal heart sound, S2 normal heart sound and no murmurs Neuro oriented x3 and CN's II-XII intact bilaterally Sensorium / Orientation: alert Psych Mood & Affect: anxious Skin no rashes or lesions noted, no wounds and skin turgor normal Skin Narrative: There is no subconjunctival or periorbital petechiae. MDM MDM MDM Narrative Medical decision making narrative: Patient presents with foreign body sensation. This happened prior to arrival. With her able to drink water, I informed her that she probably has a scratch. She would not be able to speak or swallow if there was an obstruction of her airway or esophagus. Patient remains anxious. She was told that the foreign body sensation may be present for 12 to 24 hours. In my opinion there is no indication for direct or indirect laryngoscopy. History & Record Review Additional record(s) reviewed:: Prior inpatient record (OB H&P for delivery 2023.) and Prior ED visit (Seen November 2024 for anxiety disorder with panic attacks. Seen September 2024 for abdominal pain.) Discharge Plan Triage Chief Complaint: Foreign Body ED Provider: Saud Alexander Dx/Rx/DC Orders Clinical Impression: Foreign body sensation in throat, Anxiety and depression, Tobacco use, Anxiety reaction Instructions: ED Swallowed Foreign Body (Adult) Prescriptions: No Action NK Primary Care Provider: Care Physician,No Primary Referrals: Care Physician,No Primary [Primary Care Provider] - Activity Restrictions/Additional Instructions: Follow-up with your doctor as needed. Print Language: Hungarian Disposition Disposition: Home, Self Care
[2025-02-07 19:11] VITALS: BP 163/102; PULSE 98; RESP 19; TEMP 36.8; O2SAT 99
--- NOTE | 2025-02-07 19:29 | CM.ED ---
Social Work Patient came to ED due to having a piece of candy stuck in her throat. Patient brought her 3 children, 5 years old and under. Patient was anxious, crying and telling staff she felt very anxious. SW stayed with patient and assisted with kids while patient was being cared for. Emotional support provided. Fany López, FINANCIAL SALES REPRESENTATIVE, CHIEF DATA OFFICER
== END 2025-02-07 19:16 | disposition home or self-care (01) ==
LOC: ED 19:04
PROVIDERS: Emergency Provider Emergency Medicine; Referring Provider Emergency Medicine; Visit Provider Emergency Medicine
DX: R09.A2 Foreign body sensation, throat (principal); F41.1 Generalized anxiety disorder; F17.210 Nicotine dependence, cigarettes, uncomplicated; F32.A Depression, unspecified; R13.10 Dysphagia, unspecified; F17.290 Nicotine dependence, other tobacco product, uncomplicated; R06.00 Dyspnea, unspecified
CPT/HCPCS: 99282